=== PATIENT | male | born 1990 | race Caucasian/White ===

== ENCOUNTER 2024-01-28 10:11 | Emergency (ER) | payer OTHER, SELFPAY ==
[2024-01-28 10:21] VITALS: BP 131/92
--- NOTE | 2024-01-28 11:35 | ED.GENMED ---
History of Present Illness
<Maite Ward PA-C - Last Filed: 01/28/24 15:50>
General
Chief Complaint: Skin Problem
Source: patient
Exam Limitations: none
Time Seen by Provider: 01/28/24 11:34
Nursing documentation reviewed up to this point in time: agreed with
Travel History
Have you had any contact with someone who has COVID-19?: No
Do you have any symptoms of coronavirus? Fever > 100 degrees, chills, cough, shortness of breath, sore throat, loss of taste or smell, muscle aches, or headache?: No
History of Present Illness
History of Present Illness:
33-year-old male past medical history of opioid use disorder, tobacco use disorder, recurrent skin infection presenting to emergency department today with concerns of a bump on his left axilla. Patient reports that he noticed a bump a few days ago
and notes that there is some mild pain associated with it. He notes that he feels like the bump is 'draining into the inside of his chest'. Patient does shave over the area. Patient also expresses concern with a chronic wound on left hand.
Patient denies puritis. Patient states that he has been on antibiotics on and off for the same problem, and it has not significantly improved. He states that the wound has never been drained or opened up. Patient denies fevers or chills, new
rashes, sore throat, upper respiratory symptoms, chest pain, shortness of breath, history of diabetes. Patient does not have a family doctor and is never seen a primary care provider for this issue.
Past History
<Maite Ward PA-C - Last Filed: 01/28/24 15:50>
Past History
ED Past Medical History: Asthma, Other (ADD, nephrolithiasis, right bundle branch block. Heroin abuse) and Other (vent-dependent respiratory failure, anoxic brain injury)
ED Past Surgical History: Other (Nonspecific testicular surgery not cancerous )
Social History
Tobacco: Smoker
Alcohol: None
Drug: Marijuana, Narcotics (heroin-snorting) and IVDA
Personal: Single
Living: alone
Employment: Employed
Family History
Family History: Other (Is noncontributory)
Review of Systems
<Maite Ward PA-C - Last Filed: 01/28/24 15:50>
Review of Systems
All Other Systems: ROS reviewed and negative except as documented in HPI and ROS
Phy Exam
<Maite Ward PA-C - Last Filed: 01/28/24 15:50>
Physical Exam
Physical Exam:
Vitals: Vital signs are stable, patient is afebrile
General: Patient is well-appearing in no acute distress
Skin: There are some excoriations seen axillary erythema. There is a 2 cm, chronic raised ulcerated wound on a dorsal surface of the left hand with surrounding ring of erythema and a small excoriated area at the base.
Head: normocephalic, atraumatic
Cardiac: Regular rate, no murmur. No tenderness to palpation on the left lateral chest wall, no palpable masses, no actively draining wounds
Pulmonary: Normal respiratory effort
Abdomen: no abdominal tenderness to palpation, some scattered areas of excoriations
Musculoskeletal: small area of palpable lymphadenopathy on the left axilla, no palpable abscess or large mass.
Neuro: AAOx3.
Course
<Maite Ward PA-C - Last Filed: 01/28/24 15:50>
Vital Signs
Initial and Last Documented VS:
Initial Vital Signs
Temp Pulse Resp BP Pulse Ox
98.3 F 97 18 131/92 97
01/28/24 10:21 01/28/24 10:21 01/28/24 10:21 01/28/24 10:21 01/28/24 10:21
Last Documented Vital Signs
Temp Pulse Resp BP Pulse Ox
98.3 F 111 18 142/88 100
01/28/24 10:21 01/28/24 11:52 01/28/24 11:52 01/28/24 11:52 01/28/24 11:52
<Bradley Miller MD - Last Filed: 01/28/24 17:17>
Vital Signs
Initial and Last Documented VS:
Initial Vital Signs
Temp Pulse Resp BP Pulse Ox
98.3 F 97 18 131/92 97
01/28/24 10:21 01/28/24 10:21 01/28/24 10:21 01/28/24 10:21 01/28/24 10:21
Last Documented Vital Signs
Temp Pulse Resp BP Pulse Ox
98.3 F 111 18 142/88 100
01/28/24 10:21 01/28/24 11:52 01/28/24 11:52 01/28/24 11:52 01/28/24 11:52
<Maite Ward PA-C - Last Filed: 01/28/24 15:50>
MDM/Problems Addressed
Differential Diagnosis Includes:
ddx include MRSA cellulitis, folliculitis, reactive lymphadenopathy
MDM/Problems Addressed:
skin rash
skin bump
Chronic conditions affecting care: Asthma and Other (hx of opioid use disorder, tobacco use disorder )
<Maite Ward PA-C - Last Filed: 01/28/24 15:50>
*Pulse Oximetry
Patient hypoxic: no
*Critical Care Note
Total Time (30-74mins, 75-104mins- exclusive of procedures): Not Applicable
Data Reviewed
Review of Other/Old Records Reveals: Records (reviewed previous records from ER physician documentation 10/13/23) and Discharge Summary (reviewed discharge summary from 02/20/23)
Source: patient
<Maite Ward PA-C - Last Filed: 01/28/24 15:50>
Patient Management
Escalation/DeEscalation of care consider admission/obs:
33-year-old male with a past medical history of opioid use disorder, tobacco use disorder, asthma, returning infection presenting emergency department today with concerns of a mass under his left armpit as well as a chronic left hand wound. On
exam, patient has palpable lymphadenopathy under the left axilla with overlying excoriations, as well as a chronic he has an ulcerated wound on the dorsal surface of the left hand. Patient does not have any respiratory symptoms. Patient does shave
the left armpit and various parts of his body. I suspect his lymphadenopathy may be reactive from his left-sided skin lesions and rash. We will treat patient for cellulitis with Bactrim to cover possible MRSA infection. Patient has no PCP,
discussed that his chronic hand wound will require close, recurrent follow-up. Patient aware and will establish PCP. Patient does have insurance. Patient stable for discharge.
ED Attending Note
<Maite Ward PA-C - Last Filed: 01/28/24 15:50>
-
Portions of this chart may have been created with voice recognition software.� Occasional wrong word or��sound alike� substitutions may have occurred due to the inherent limitations of voice recognition software.
<Bradley Miller MD - Last Filed: 01/28/24 17:17>
ED Attending Note
Patient seen and examined by attending physician: Yes
ED Attending Note:
Patient presents to ED secondary to painful sensation noted on his left armpit over the past 2 days, along with nonhealing wound over his left hand over the past 1 week. Patient unsure of how he obtained small nonhealing laceration noted over
dorsal aspect of his left hand. Denies fever or chills. Denies direct trauma. Denies nausea or vomiting. Patient has had history of previous skin infection requiring treatment with antibiotics. Patient's medical history is significant for drug
abuse and smoking. Denies use of any IV drugs.
Physical Exam
General: no apparent distress, not acutely ill. afebrile.
Head: nc/at. eomi
Neck: supple. no meningeal signs.
Abdomen: normal bowel sounds. not tender.
Neuro: alert and oriented. no focal neurological deficits
Skin: an approx 3cm linear superficial laceration noted over dorsal aspect of left hand without separation/drainage. no surrounding erythema/warmth, nontender to palpation.
Psychiatric: well kept. interactive and cooperative
Extremities: no edema. no calf tenderness. mildly tender lymph noted over left axilla, without erythema/swelling/open wound.
Patient will be treated empirically with Bactrim, along with recommendation to follow-up with PCP for reevaluation.
Discharge Plan
Departure
Patient Disposition: Home (Routine Discharge)
Date of Disposition: 01/28/24
Time of Disposition: 11:57
Patient with high blood pressure during this ER visit?: Yes
Condition: Good
Discharge Problem:
Skin infection, Lymphadenopathy
Instructions: Cellulitis (Skin Infection), Adult (DC), BLOOD PRESSURE
Prescriptions:
New
sulfamethoxazole-trimethoprim [Bactrim DS] 800-160 mg tablet
1 tab PO BID 7 Days Qty: 14 0RF
No Action
Cepacol Sore Throat (luis-men) 15-2.6 mg Lozenge
1 nicholas PO Q4HPRN PRN (Reason: sore throat) Qty: 16 0RF
amoxicillin-pot clavulanate 875-125 mg Tablet
1 tab PO Q12 Qty: 5 0RF
Rx Instructions:
next dose 02/20/23 PM
ciprofloxacin HCl 0.3 % Drops
1 drp ophthalmic (eye) Q4H Qty: 10 0RF
Rx Instructions:
R eye x 1 week
loratadine 10 mg Tablet
10 mg PO DAILY Qty: 30 0RF
nystatin 100,000 unit/mL Suspension
5 ml PO QID Qty: 280 0RF
Rx Instructions:
2 week course
pantoprazole [Protonix] 40 mg tablet,delayed release (DR/EC)
40 mg PO DAILY Qty: 30 0RF
metoprolol succinate 25 mg Tablet Extended Release 24 Hr
12.5 mg PO BID Qty: 60 0RF
buprenorphine HCl 8 mg Tablet, Sublingual
16 mg sublingual DAILY Qty: 60 0RF
tamsulosin [Flomax] 0.4 mg capsule
0.4 mg PO [id number] Qty: 30 0RF
Patient Comments:
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
cephalexin 500 mg capsule
500 mg PO BID 7 Days Qty: 14 0RF
Referrals:
NONE,* [Family Provider] -
Activity Restrictions/Additional Instructions:
Please refrain from shaving until all of your infections are healed. Please call the number on the back of your insurance card to establish a primary care provider, is important that you have follow-up on this wound.
We have sent an antibiotic called Bactrim to your pharmacy. Please take 1 tablet every 12 hours for 7 days.
Please return to the emergency department should you experience fevers or chills, skin rash, drainage from your wound, or other concerning signs or symptoms.
Interventions
Interventions:
*Risk Screen - Suicide Last Done: 01/28/24 11:50
*General Assessment Last Done: 01/28/24 11:50
*Neglect/Abuse Screening Last Done: 01/28/24 11:50
ED- Fall Risk Assessment Last Done: 01/28/24 11:51
*ED COVID-19 Vaccine History Last Done: 01/28/24 10:21
*Nursing Disposition Last Done: 01/28/24 12:05
ED-Skin Assessment Last Done: 01/28/24 12:00
Discharge Date and Time
Discharge Date/Time: 01/28/24 12:05
--- NOTE | 2024-01-28 11:42 | EDRN ---
Jalen COSTA in room w/ pt .
[2024-01-28 11:52] VITALS: BP 142/88
--- NOTE | 2024-01-28 11:53 | EDRN ---
Dr. Miller in room w/ pt at this time.
[2024-01-28 12:05] VITALS: BMI 22.8
== END 2024-01-28 12:05 | disposition home or self-care (01) ==
LOC: EMR 10:11
PROVIDERS: EMERGENCY PHYSICIAN Emergency Medicine
DX: L08.9 Local infection of the skin and subcutaneous tissue, unspecified (principal); R59.1 Generalized enlarged lymph nodes; F17.200 Nicotine dependence, unspecified, uncomplicated; F11.90 Opioid use, unspecified, uncomplicated; J45.909 Unspecified asthma, uncomplicated; R03.0 Elevated blood-pressure reading, without diagnosis of hypertension; Z99.11 Dependence on respirator [ventilator] status
CPT/HCPCS: 99283

== ENCOUNTER 2024-01-29 14:56 | Emergency (ER) | payer SELFPAY ==
[2024-01-29 15:17] VITALS: BP 158/110
[2024-01-29 15:39] LABS: % Basophils 0.4 % (0-2); % Immature Granulocytes 0.5 % (0-0.5); % Lymphocytes 7.9 % (20.5-51.1); % Monocytes 5.9 % (1.7-9.3); % Neutrophils 84.3 % (42.2-75.2); Absolute Eosinophils 0.1 10^3/uL (0-0.7); Absolute Immature Granulocytes 0.1 10^3/uL (0-0.05); Absolute Lymphocytes 0.8 10^3/uL (1.2-3.4); Absolute Monocytes 0.6 10^3/uL (0.1-0.6); Absolute Neutrophils 8.6 10^3/uL (1.4-6.5); Hematocrit 44.2 % (39.0-52.0); Hemoglobin 15.4 g/dL (13.0-18.0); Mean Corp Hgb Conc. 34.8 g/dL (33.0-37.0); Mean Corpuscular Hgb 29.1 pg (27.0-31.0); Mean Corpuscular Volume 83.4 fL (80.0-94.0); Mean Platelet Volume 9.2 fL (7.4-10.4); Nucleated Red Blood Cells % 0 % (-); Platelet Count 206 10^3/uL (130-400); Red Cell Dist. Width 12.8 % (11.5-14.5); White Blood Cell Count 10.2 10^3/uL (4.8-10.8)
[2024-01-29 15:53] LABS: ALT (SGPT) 42 U/L (0-50); AST (SGOT) 47 U/L (17-59); Albumin 4.5 g/dl (3.5-5.0); Alkaline Phosphatase 115 U/L (38-126); Blood Urea Nitrogen 15 mg/dl (9-20); Calcium 9.6 mg/dl (8.4-10.2); Carbon Dioxide 29 mmol/L (22-30); Chloride 101 mmol/L (98-107); Glucose 81 mg/dl (70-99); Sodium 139 mmol/L (135-145); Total Bilirubin 0.6 mg/dl (0.2-1.3); Total Protein 7.1 g/dl (6.3-8.2); eGFR > 60.00
--- NOTE | 2024-01-29 18:31 | ED.GENMED ---
History of Present Illness
General
Chief Complaint: Oral/Mouth Problem
Source: patient
Time Seen by Provider: 01/29/24 18:06
Travel History
Have you had any contact with someone who has COVID-19?: No
Do you have any symptoms of coronavirus? Fever > 100 degrees, chills, cough, shortness of breath, sore throat, loss of taste or smell, muscle aches, or headache?: No
History of Present Illness
History of Present Illness:
This patient is a 33-year-old male who presents emergency department with concerns that he may have a left ear infection. He says that his left ear area started to develop [id number], associated with a funny feeling on the left side of the
back of his tongue and slight nausea. He denies drainage, tinnitus, fever, chills, vomiting, vertigo, visual changes, sore throat, change in voice, dyspnea, chest pain, or other complaints. Patient was here yesterday with reported swelling in the
left axillary area and was started on Bactrim which she is compliant with.
Past History
Past History
ED Past Medical History: Asthma and Other (ADD, nephrolithiasis, right bundle branch block. Heroin abuse)
ED Past Surgical History: Other (Nonspecific testicular surgery not cancerous )
Social History
Tobacco: Smoker
Alcohol: None
Drug: Marijuana, Narcotics (heroin-snorting) and IVDA
Personal: Single
Living: alone
Employment: Employed
Family History
Family History: Other (Is noncontributory)
Phy Exam
Physical Exam
Physical Exam:
GENERAL: Alert , in no apparent distress
EYE: pupils equal and reactive, no photophobia
NECK: Supple, no significant adenopathy, no swelling, trachea midline.
ENT: o/p clr, mmm, no submental swelling, no trismus, no drool, no stridor, voice clear. Right TM normal. Left TM visualized and is normal, there is dried blood noted at the external auditory canal without active bleeding, no canal swelling or
exudate noted.
CARDIAC: Regular rate and rhythm .
LUNGS: Clear breath sounds bilaterally, no acute respiratory distress, no wheezes/rales/rhonchi
ABDOMEN: Soft, without focal tenderness, no r/g, no cvat
NEUROLOGICAL: Alert and oriented, no focal neuro deficits
SKIN: Warm and dry, skin intact. There is a healing approximately 3 cm laceration of the left hand without secondary infection. In the left axilla area there is a slightly enlarged lymph node without associated redness, warmth, fluctuance
MUSCULOSKELETAL: Trace bilateral lower extremity edema, well perfused.
PSYCH: Normal and appropriate interaction.
Course
Orders/Labs/Results
Orders:
Orders
01/29/24 15:27
Complete Blood Count/With Diff Urgent
Comprehensive Metabolic Panel Urgent
Abnormal Lab Results
01/29/24
15:27
Abs Immat Gran (auto) 0.1 H 10^3/uL
(0-0.05)
Absolute Neuts (auto) 8.6 H 10^3/uL
(1.4-6.5)
Absolute Lymphs (auto) 0.8 L 10^3/uL
(1.2-3.4)
Neutrophils % 84.3 H %
(42.2-75.2)
Lymphocytes % 7.9 L %
(20.5-51.1)
01/29/24 15:27
01/29/24 15:27
Vital Signs
Initial and Last Documented VS:
Initial Vital Signs
Temp Pulse Resp BP Pulse Ox
98.0 F 100 16 158/110 98
01/29/24 15:17 01/29/24 15:17 01/29/24 15:17 01/29/24 15:17 01/29/24 15:17
Last Documented Vital Signs
Temp Pulse Resp BP Pulse Ox
98.0 F 100 16 158/110 98
01/29/24 15:17 01/29/24 15:17 01/29/24 15:17 01/29/24 15:17 01/29/24 15:17
*Critical Care Note
Total Time (30-74mins, 75-104mins- exclusive of procedures): Not Applicable
Update Note
Update Note:
Patient presents to the Emergency Department with ___left ear [id number]
Number and Complexity of Problems Addressed at the Encounter
� Chronic conditions affecting care:
� Acute Exacerbation and/or Progression of Chronic Illness:
� Differential Diagnosis includes: But not limited to paresthesias, otitis externa, otitis media, etc.
Amount and/or Complexity of Data to be Reviewed and Analyzed
� I performed an independent evaluation of and my interpretation is:
EKG:
CT:
Xrays:
Laboratory Studies:
Other:
� Review of other/old records reveals:
� Clinical information was obtained by an independent historian:
� Prescriptions/Medications Considered but not given:
� Further testing considered but not performed:
Risk of Complications and/or Morbidity or Mortality of Patient Management
� Social determinants of health affecting care:
� Discussion with other providers (PCP, Hospitalists, Consultants, etc):
� Escalation of care including admission/observation vs risk of discharge considered: 6:34 PM patient admits to picking at the external portion of the left ear which I suspect is the reason for the dried blood noted, no active
bleeding, infection, otitis externa, otitis media, mastoiditis noted on physical exam. No acute infection noted otherwise. Discussed with patient importance of follow-up and reasons return to the ER.
ED Attending Note
-
Portions of this chart may have been created with voice recognition software.� Occasional wrong word or��sound alike� substitutions may have occurred due to the inherent limitations of voice recognition software.
Discharge Plan
Departure
Patient Disposition: Home (Routine Discharge)
Date of Disposition: 01/29/24
Time of Disposition: 18:35
Patient with high blood pressure during this ER visit?: Yes
Condition: Good
Discharge Problem:
Acute ear pain
Instructions: BLOOD PRESSURE, General
Prescriptions:
No Action
Cepacol Sore Throat (luis-men) 15-2.6 mg Lozenge
1 nicholas PO Q4HPRN PRN (Reason: sore throat) Qty: 16 0RF
amoxicillin-pot clavulanate 875-125 mg Tablet
1 tab PO Q12 Qty: 5 0RF
Rx Instructions:
next dose 02/20/23 PM
ciprofloxacin HCl 0.3 % Drops
1 drp ophthalmic (eye) Q4H Qty: 10 0RF
Rx Instructions:
R eye x 1 week
loratadine 10 mg Tablet
10 mg PO DAILY Qty: 30 0RF
nystatin 100,000 unit/mL Suspension
5 ml PO QID Qty: 280 0RF
Rx Instructions:
2 week course
pantoprazole [Protonix] 40 mg tablet,delayed release (DR/EC)
40 mg PO DAILY Qty: 30 0RF
metoprolol succinate 25 mg Tablet Extended Release 24 Hr
12.5 mg PO BID Qty: 60 0RF
buprenorphine HCl 8 mg Tablet, Sublingual
16 mg sublingual DAILY Qty: 60 0RF
tamsulosin [Flomax] 0.4 mg capsule
0.4 mg PO [id number] Qty: 30 0RF
Patient Comments:
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
cephalexin 500 mg capsule
500 mg PO BID 7 Days Qty: 14 0RF
sulfamethoxazole-trimethoprim [Bactrim DS] 800-160 mg tablet
1 tab PO BID 7 Days Qty: 14 0RF
Referrals:
Luis Mcrae MD [Active] - Next open appointment
Activity Restrictions/Additional Instructions:
IF YOU DEVELOP BLEEDING, DRAINAGE, FEVER, DIZZINESS, SWELLING OR REDNESS OF YOUR EAR OR NECK AREA, TROUBLE SWALLOWING, TROUBLE OPENING YOUR MOUTH, DROOLING, CHEST PAIN, SHORTNESS OF BREATH, OR OTHER WORRISOME SIGNS, PLEASE RETURN TO THE ER
IMMEDIATELY.
Interventions
Interventions:
*ED COVID-19 Vaccine History Last Done: 01/29/24 15:17
[2024-01-29 18:40] VITALS: BP 152/89
== END 2024-01-29 18:50 | disposition home or self-care (01) ==
LOC: EMR 14:56
PROVIDERS: EMERGENCY PHYSICIAN Emergency Medicine
DX: H92.02 Otalgia, left ear (principal); F17.200 Nicotine dependence, unspecified, uncomplicated; R03.0 Elevated blood-pressure reading, without diagnosis of hypertension
CPT/HCPCS: 99283; 80053; 85025

== ENCOUNTER 2024-07-23 17:40 | Inpatient (IN) | payer OTHER, SELFPAY ==
[2024-07-23] VITALS (28 sets, daily range): BP systolic 69–172; BP diastolic 46–149; BMI 22.8; BMI 22.0
[2024-07-23 14:56] LABS: Glucose - Point of Care 95 mg/dl (70-99)
[2024-07-23] MEDS: SUBLIMAZE 100 MCG IV ×2 (15:06→16:44)
[2024-07-23] MEDS: SUBLIMAZE 100 IV ×2 (15:07→20:21)
[2024-07-23] MEDS: NSS 1000 IV ×2 (15:08→19:25)
[2024-07-23] MEDS: LEVOPHED 250 IV ×2 (15:09→21:36)
--- NOTE | 2024-07-23 15:30 | ED.GENMED ---
History of Present Illness
General
Chief Complaint: CODE
Source: ambulance crew
Exam Limitations: clinical condition and altered mental status
Time Seen by Provider: 07/23/24 15:02
Nursing documentation reviewed up to this point in time: agreed with
History of Present Illness
History of Present Illness:
Patient with history of chronic opioid use, presents to ED for evaluation after he was found unresponsive laying on the couch by his father. Per paramedics, patient was last known awake at 9 AM this morning, and 911 was dispatched 2:07 PM. When
police first arrived at scene, patient was found to be apneic and pulseless. Patient was given 4 mg of Narcan and CPR was started. When paramedics arrived at scene, patient was found to be in same clinical state. Patient was given additional 4 mg
of Narcan and shortly afterwards was found to be in ventricular fibrillation rhythm. Patient was given 1 shock with adventist of sinus rhythm and pulse. Patient was started IV fluid and intubated seen prior to arrival. No further information
available at this time.
Past History
Past History
ED Past Medical History: Asthma and Other (ADD, nephrolithiasis, right bundle branch block. Heroin abuse)
ED Past Surgical History: Other (Nonspecific testicular surgery not cancerous )
Social History
Tobacco: Smoker
Alcohol: None
Drug: Marijuana, Narcotics (heroin-snorting) and IVDA
Personal: Single
Living: alone
Employment: Employed
Family History
Family History: Other (Is noncontributory)
Review of Systems
Review of Systems
Allergies reviewed?: Yes
Unable to obtain full review of systems at this time due to: intubated
All Other Systems: Not applicable
Phy Exam
Physical Exam
Physical Exam:
Physical Exam
General: somnolent, unresponsive to verbal/physical stimuli. afebrile
Head: nc/at. pupils dilated and unreactive
Neck: no jvd.
Heart: s1/s2 regular rate and rhythm, no murmur. equal radial pulses.
Lungs: no acute respiratory distress. equal bilaterally while being bagged
Abdomen: normal bowel sounds. no distention
Neuro: unresponsive.
Skin: no rash
Extremities: no edema.
Course
Orders/Labs/Results
Orders:
Orders
07/23/24 14:55
CR Chest Portable - 1 View Urgent
Comment:
Reason For Exam: code
Reason Study Needs to be Portable: Unable to Transport
07/23/24 14:58
FentaNYL 1,000 MCG/100 ML [Sublimaze] 1,000 mcg in 100 ml .ROUTE .STK-MED
Fentanyl Citrate/Pf [Sublimaze] 100 mcg .ROUTE .STK-MED ONE
07/23/24 Dinner
NPO
Allow oral meds: Yes
Allow clear liquids: No
07/23/24 15:02
0.9% Sodium Chloride 1000 ml [Nss] 1,000 ml IV BOLUS
FentaNYL 1,000 MCG/100 ML [Sublimaze] 1,000 mcg in 100 ml IV NOW
Indication:: Light Sedation
Begin Infusion:: Now
Goal:: pain score </= 1, CPOT 0-2
Maximum dose in mcg/hr:: 300
Initial Dose in mcg/hr:: 25
Titration Instructions:: Titrate every 30 minutes if patient exhibits signs of pain or discomfort
Titration Instructions:: (pain score >/= 2, CPOT >/= 3).
Titration Instructions:: Administer bolus dose and increase infusion by 25 mcg/hr.
Taper Instructions:: If pain score at goal for 4 consecutive hours (pain score </= 1, CPOT 0-2)
Taper Instructions:: decrease infusion by 50 mcg/hr every 2 hours.
Taper Instructions:: When dose </= 50 mcg/hr may turn infusion off and consider PRN
Taper Instructions:: intermittent bolus doses only.
Over-sedation Instructions:: If CPOT 0-2 (goal) and RASS -3 to -5 (below goal) decrease sedative by 50%
Over-sedation Instructions:: first. If pain score remains at goal and RASS remains below goal in 1 hour,
Over-sedation Instructions:: decrease opioid infusion by 50%.
Notify provider:: immediately if pt exhibits: chest wall rigidity, hemodynamic instability,
Notify provider:: agitation/pain despite maximum dosing, pain when RASS below goal.
Additional Instructions:: Patient MUST be mechanically ventilated.
Fentanyl Citrate/Pf [Sublimaze] 100 mcg IV NOW STA
Fentanyl Citrate/Pf [Sublimaze] 50 mcg IV [id number] PRN
NORepinephrine 4 MG/250 ML [Levophed] 4 mg in 250 ml .ROUTE .STK-MED
07/23/24 15:05
CT Head W/o Iv Contrast Urgent
Comment:
Reason For Exam: mental status change
07/23/24 15:15
NORepinephrine 4 MG/250 ML [Levophed] 4 mg in 250 ml IV PER PROTOCOL
Initial dose in mcg/min, then titrate:: 5
Titrate to keep:: SBP > 90 mmHg
Titrate by mcg/min:: 1-2 mcg/min
Frequency of titrations (minutes):: 5
Maximum dose in ICU in mcg/min:: 30
Maximum dose in IMU in mcg/min:: 8
Maximum dose in IVU in mcg/min:: 4
Begin to taper infusion when:: Remained at goal for 4hrs
Taper by mcg/min:: 1-2 mcg/min
Frequency of taper (minutes) if patient maintains goal:: 30
Taper to off?: Yes
If infusion off & no longer maintaining goal:: Contact Provider
07/23/24 15:21
[place] Placement- Treatment ONCE
Reason for insertion: I&O's Critical Care
07/23/24 15:34
Basic Metabolic Panel Urgent
Complete Blood Count/With Diff Urgent
Lactic Acid Q4H
Comment: CANCEL 2nd LACTIC ACID IF 1st LACTIC ACID IS LESS THAN 2
Triglycerides Routine
Comment: baseline levels with propofol infusion
07/23/24 15:40
Lorazepam [Ativan] 2 mg IV NOW STA
07/23/24 15:41
Lorazepam [Ativan] 2 mg .ROUTE .STK-MED ONE
07/23/24 15:42
Propofol 1,000,000 Mcg/100 ml [Diprivan] 1,000,000 mcg in 100 ml IV NOW
Indication:: Light Sedation
Begin Infusion:: Now
Goal:: RASS 0 to -2
Maximum dose in mcg/kg/min:: 50
Initial dose based on RASS:: Yes
If RASS is:: +1 or pt hemodynamically unstable (SBP < 90mmHg), initiate at 10 mcg/kg/min
If RASS is:: +2, initiate at 20 mcg/kg/min
If RASS is:: greater than or equal to +3, initiate at 30 mcg/kg/min
Titration Instructions:: Titrate by 5-10 mcg/kg/min every 5 minutes until RASS 0 to -2 achieved.
Taper Instructions:: If RASS is at or below goal for 4 consecutive hours decrease infusion by
Taper Instructions:: 5-10 mcg/kg/min every 2 hours to off.
Over-sedation Instructions:: If CPOT 0-2 (at goal) AND RASS -3 to -5 (below goal) decrease sedative by
Over-sedation Instructions:: 50% first. If pain score remains at goal and RASS remains below goal in
Over-sedation Instructions:: 1 hour, decrease opioid infusion by 50%.
Notify provider:: immediately if patient exhibits signs/symptoms of propofol-related
Notify provider:: infusion syndrome.
Additional Instructions:: Patient MUST be mechanically ventilated and MUST receive analgesia.
07/23/24 15:48
Arterial Blood Gas Urgent
%Oxygen/Room Air: 90
07/23/24 15:49
Drug Screen, Urine [Urine Drug Abuse Screen] Urgent
Date Specimen was Collected: 07/23/24
Time Specimen was Collected: 15:48
Fentanyl, Urine Urgent
07/23/24 16:08
Fentanyl Citrate/Pf [Sublimaze] 100 mcg .ROUTE .STK-MED ONE
07/23/24 16:32
Fentanyl Citrate/Pf [Sublimaze] 100 mcg IV [id number] PRN
07/23/24 17:10
DX Deep Vein Thrombosis Video Routine
07/23/24 17:20
Admit/Transfer Patient As Directed
Co-Sign Provider:
Level of Care: Inpatient admission
Assign to:: ICU
Physician / Group: james
Diagnosis: fentanyl overdose
Reason for Hospitalization: fentanyl overdose
Expected length of stay greater than two midnights?: Yes
ELOS- Estimated Length of Stay in days: 2
I certify the patient meets the requirements for IP care: Yes
Code Status As Directed
Resuscitation Status: Full Code
PRN Pain Medication Management As Directed
May give lesser potent ordered pain med per pt: Yes
preference::
Protocol:: Medication orders for pain may be administered in a
manner that supports deferring to patient preference
when the pt is:
- Requesting an ordered lesser potent pain medication.
Least to most potent pain medications are defined
as: acetaminophen < NSAID < tramadol < opioids
(morphine, oxycodone, hydromorphone).
- Requesting a lesser dose of the same medication IF
ORDERED.
- Requesting a less intrusive route of administration
if both routes are prescribed by the provider (PO <
IV).
07/23/24 18:00
Enoxaparin Sodium [Lovenox] 40 mg SC QPM
07/23/24 18:06
0.9% Sodium Chloride 1000 ml [Nss] 1,000 ml IV 100 mls/hr
07/23/24 18:06
Activity As Directed
Activity Level: As Tolerated
Vital Signs As Directed
Frequency: Per unit guidelines
07/23/24 20:14
Arterial Blood Gas Routine
%Oxygen/Room Air: 100
Basic Metabolic Panel Routine
Lactic Acid Q4H
Comment: CANCEL 2nd LACTIC ACID IF 1st LACTIC ACID IS LESS THAN 2
Magnesium Routine
07/24/24 03:42
ABG [Arterial Blood Gas] IN AM
%Oxygen/Room Air: 100
Complete Blood Count/With Diff IN AM
Comprehensive Metabolic Panel IN AM
07/24/24 08:00
Pantoprazole [Protonix IV] 40 mg IV DAILY
Abnormal Lab Results
07/23/24 07/23/24 07/23/24
15:34 15:48 15:49
Abs Immat Gran (auto) 0.8 H 10^3/uL
(0-0.05)
Immature Gran % 8.6 H %
(0-0.5)
pH 7.18 L*
(7.35-7.45)
pO2 301 H mmHg
(83-108)
HCO3 14.9 L* mmol/L
(21-28)
ABG O2 Sat (Measured) 100.0 H %
(94-98)
Carbon Dioxide 14 L* mmol/L
(22-30)
Creatinine 1.4 H mg/dL
(0.7-1.3)
Lactic Acid 8.2 H* mmol/L
(0.7-2.0)
Urine Fentanyl Screen Positive H
(Negative)
Ur Amphetamines Screen Positive H
(Negative)
U Methamphetamines Scrn Positive H
(Negative)
Urine Cocaine Screen Positive H
(Negative)
07/23/24 15:34
07/23/24 15:34
Vital Signs
Initial and Last Documented VS:
Initial Vital Signs
Pulse Resp BP Pulse Ox
98 17 69/46 98
07/23/24 14:56 07/23/24 14:56 07/23/24 14:56 07/23/24 14:56
Last Documented Vital Signs
Temp Pulse Resp BP Pulse Ox
101 F H 91 18 98/68 100
07/24/24 03:47 07/24/24 06:30 07/24/24 06:30 07/24/24 04:00 07/24/24 07:36
MDM/Problems Addressed
MDM/Problems Addressed:
Patient evaluated medially upon arrival. Equal breath sounds noted while being bagged. ET tube evaluated with chest x-ray, ETT tube adjusted - pushed down 1cm towards jose eduardo.
Patient found to be severely hypotensive, for which IV fluid along with Levophed infusion started, as well as fentanyl infusion for sedation.
CT head pending.
Patient will be admitted to ICU, with suspected anoxic brain injury.
Discussed with father at bedside.
Propofol gtt added due to increased RR and agitation noted during observation, as patient noted to be breathing above the vent setting.
Critical care statement: A total of 60 minutes of critical care time was provided for this patient. This includes management of unstable vital signs, evaluation of the patient at bedside, reviewing the patient's pertinent medical records, review of
old EKGs and review of pertinent medical records. This time with separate from time utilized to perform the aforementioned documented procedures
*Critical Care Note
Total Time (30-74mins, 75-104mins- exclusive of procedures): 60 min
ED Attending Note
-
Portions of this chart may have been created with voice recognition software.� Occasional wrong word or��sound alike� substitutions may have occurred due to the inherent limitations of voice recognition software.
Discharge Plan
Departure
Patient Disposition: Admit
Date of Disposition: 07/23/24
Time of Disposition: 15:36
Admit to: ICU
Presentation/result/management discussed w/ accepting MD/DO: Hospitalist
Discharge Problem:
Respiratory failure
Interventions
Interventions:
*Risk Screen - Suicide Last Done: 07/23/24 14:56
*General Assessment Last Done: 07/23/24 14:56
*Neglect/Abuse Screening Last Done: 07/23/24 14:56
ED- Fall Risk Assessment Last Done: 07/23/24 18:18
*ED COVID-19 Vaccine History Last Done: 07/23/24 18:19
*Nursing Disposition Last Done: 07/23/24 18:18
ED- Cardiac Assessment Last Done: 07/23/24 15:10
ED- Pulmonary Assessment Last Done: 07/23/24 15:10
Discharge Date and Time
Discharge Date/Time: 07/23/24 18:20
[2024-07-23] MEDS: ATIVAN 2 MG IV (15:43)
[2024-07-23 15:51] LABS: Hematocrit 44.2 % (39.0-52.0); Hemoglobin 14.8 g/dL (13.0-18.0); Mean Corp Hgb Conc. 33.5 g/dL (33.0-37.0); Mean Corpuscular Hgb 30.5 pg (27.0-31.0); Mean Corpuscular Volume 91.1 fL (80.0-94.0); Platelet Count 245 10^3/uL (130-400); Red Blood Cell Count 4.85 10^6/uL (4.70-6.10); Red Cell Dist. Width 11.9 % (11.5-14.5); White Blood Cell Count 9.4 10^3/uL (4.8-10.8)
[2024-07-23 15:54] LABS: B.E. -12.9 mmol/L; PCO2 40 mmHg (35-48); PO2 301 mmHg (83-108)
[2024-07-23] MEDS: DIPRIVAN 100 IV ×2 (15:55→19:20)
[2024-07-23 15:57] LABS: HCO3 14.9 mmol/L (21-28); pH 7.18 (7.35-7.45)
[2024-07-23 16:06] LABS: Blood Urea Nitrogen 20 mg/dl (9-20); Calcium 8.7 mg/dl (8.4-10.2); Carbon Dioxide 14 mmol/L (22-30); Chloride 105 mmol/L (98-107); Estimated Creatinine Clearance 77 ml/min; Sodium 142 mmol/L (135-145); Triglycerides 45 mg/dl (10-149); eGFR > 60.00
[2024-07-23 16:07] LABS: % Basophils 1.3 % (0-2); % Eosinophils 1.5 % (0-6); % Immature Granulocytes 8.6 % (0-0.5); % Lymphocytes 35.2 % (20.5-51.1); % Monocytes 3.7 % (1.7-9.3); % Neutrophils 49.7 % (42.2-75.2); Absolute Basophils 0.1 10^3/uL (0-0.2); Absolute Eosinophils 0.1 10^3/uL (0-0.7); Absolute Immature Granulocytes 0.8 10^3/uL (0-0.05); Absolute Lymphocytes 3.3 10^3/uL (1.2-3.4); Absolute Monocytes 0.4 10^3/uL (0.1-0.6); Absolute Neutrophils 4.7 10^3/uL (1.4-6.5); Glucose 85 mg/dl (70-99); Nucleated Red Blood Cells % 0 % (-)
[2024-07-23 16:11] LABS: Lactic Acid 8.2 mmol/L (0.7-2.0)
[2024-07-23 16:30] LABS: Amphetamines Positive (Negative); Barbiturates Negative (Negative); Benzodiazepines Negative (Negative); Buprenorphine Negative (Negative); Cocaine Positive (Negative); Marijuana Negative (Negative); Methadone Negative (Negative); Methamphetamines Positive (Negative); Opiates Negative (Negative); Phencyclidine Negative (Negative); Tricyclic Antidepressants Negative (Negative)
--- NOTE | 2024-07-23 16:34 | HPS.HSE ---
Family Physician
-
Family Physician: NO INTERVIEW UNKNOWN
Chief Complaint
-
overdose
History of Present Illness
33-year-old male past medical history of cardiac arrest from drug overdose, heroin use, cardiomyopathy, vent dependent respiratory failure, aspiration pneumonia, nephrolithiasis, leukoplakia of tongue, depression, presenting for altered mental
status. He was found unresponsive laying on the couch by his father. Per paramedics he was last awake at 9 AM this morning and EMS was dispatched at 2:07 PM and police found him apneic and pulseless. Patient was given 4 mg of Narcan and CPR was
started. Paramedics arrived and gave additional 4 mg Narcan and was found to be in ventricular fibrillation. He was shocked once with baptism of sinus rhythm and pulse. He was intubated prior to arrival.
Patient has not used drugs in 2 years. Father denies any suicidal intent recently. Patient does use medical marijuana. He does not drink alcohol and father is not aware of any other drug use.
Medical History
Past Medical History
Past Medical History: Reports Other (cardiac arrest from drug overdose, heroin use, cardiomyopathy, vent dependent respiratory failure, aspiration pneumonia, nephrolithiasis, leukoplakia of tongue, depression)
Past Surgical History: Reports None
Social History
Tobacco: Non-smoker
Alcohol: None
Drug: Marijuana and Narcotics
Family History
Family History: Not pertinent
Allergies / Home Medications
Allergies reflects when Allergies were last updated in [facility].
Home Medications with original date entered in [facility]
Allergy/Medication List:
Allergies
Allergy/AdvReac Type Severity Reaction Status Date / Time
cat dander Allergy Unknown Verified 07/23/24 14:53
house dust Allergy Unknown Verified 07/23/24 14:53
pollen extracts Allergy Unknown Verified 07/23/24 14:53
shrimp Allergy SWELLING/IT Verified 07/23/24 14:53
PETEY
Home Medications
terbinafine HCl 1 % topical cream 1 applic topical BID Skin Issues 07/23/24
Review of Systems
-
Unable to obtain full review of systems at this time due to: Patient Intubation
History Source: Family
A 12 point ROS was completed and negative except as noted: No
Physical Exam
Vital Signs
Vital Signs
Pulse Resp BP Pulse Ox
116 29 172/149 97
07/23/24 16:15 07/23/24 16:15 07/23/24 16:00 07/23/24 16:15
Physical Exam
General: Well Developed, Well Nourished and No Apparent Distress
HEENT: NormoCephalic, Moist mucous membranes and Atraumatic
Respiratory: Clear
Cardiac: S1/S2 and Regular Rhythm; No Murmur or Rub
GI: Soft, Non Tender, Non Distended and Normal Bowel Sounds; No Organomegaly
Rectal: Deferred by Provider
Musculoskeletal: No Clubbing, No Cyanosis and No Edema
Skin: No Rash
Neuro: Nonfocal/grossly intact
Laboratory Results
-
07/23/24 15:34
07/23/24 15:34
Laboratory Results
pH 7.18 (7.35-7.45) L* 07/23/24 15:48
pCO2 40 mmHg (35-48) 07/23/24 15:48
pO2 301 mmHg (83-108) H 07/23/24 15:48
HCO3 14.9 mmol/L (21-28) L* 07/23/24 15:48
Lactic Acid 8.2 mmol/L (0.7-2.0) H* 07/23/24 15:34
Total Bilirubin Cancelled 07/23/24 15:34
AST Cancelled 07/23/24 15:34
ALT Cancelled 07/23/24 15:34
Alkaline Phosphatase Cancelled 07/23/24 15:34
Data Reviewed
-
Lab Data: Labs Reviewed by me
Old Records: Reviewed
Impression/Plan
-
IMPRESSION:
PLAN:
# Vfib Cardiac arrest secondary to fentanyl/heroin overdose
-Postintubation ABG shows pH of 7.18 secondary to metabolic acidosis
-Chest x-ray shows parenchymal process in the right lower lung atelectasis, pneumonia not completely excluded
-CT head shows no acute abnormality
-Fentanyl drip
-Propofol drip
-Levophed weaned off
-UDS pending
#Metabolic acidosis secondary to cardiac arrest
#Acute kidney injury
-Patient received 2 L of IV fluids
-Lactate of 8, trend lactic
-Continue IV fluids
History of fentanyl, benzodiazepine, cocaine use
-As per prior UDS
History of cardiomyopathy
-LV ejection fraction is 55-60%
Nephrolithiasis
History of leukoplakia of tongue
Depression
Full code
NPO
DVT prophylaxis-heparin
--- NOTE | 2024-07-23 16:54 | CON.INTV ---
Consultation
Consultation Request
Date/Time Consultation Requested: 07/23/2024
Date/Time Consultation Performed: 07/23/2024
Requesting Provider: Dr. Guerrero
Performing Provider: Dr. Jered Hawley
Reason for Consultation: Respiratory arrest/hypercapnic respiratory failure requiring intubation
Medical History
-
History of Present Illness:
33-year-old man with longstanding history of opiate abuse, prior history of drug overdose requiring CPR and intubations in the past. Last in 2022. History of depression, leukoplakia of the tongue, nephrolithiasis presented with mental status
change. He was found unresponsive in the couch by his father. Last time seen awake was 9 AM. Unclear how long patient was down. At 2 PM police was dispatched. 4 mg of Narcan was given and CPR started. Paramedics arrived and additional 4 mg of
Narcan were given. Found on ventricular fibrillation, shocked once with restart of spontaneous circulation. Intubated on the field prior to arrival.
After intubation, tachypneic, unresponsive. Overbreathing the ventilator. Hypotensive after starting sedation, Levophed was started.
-
Personally discussed with father and patient apparently has not used drugs for 2 years. Apparently there is no history of alcohol use. He smokes marijuana.
Past Medical History
Past Medical History: Other (See assessment and plan findings)
Social History
Tobacco: Non-smoker
Alcohol: None
Drug: Marijuana
Personal: Single
Living: With Family (Father)
Employment: Not Employed
Family History
Family History: Unable to Obtain
Allergies / Home Medications
Allergies
Allergy/AdvReac Type Severity Reaction Status Date / Time
cat dander Allergy Unknown Verified 07/23/24 14:53
house dust Allergy Unknown Verified 07/23/24 14:53
pollen extracts Allergy Unknown Verified 07/23/24 14:53
shrimp Allergy SWELLING/IT Verified 07/23/24 14:53
PETEY
Home Medications
�Medication �Instructions �Recorded �Confirmed �Last Taken �Type
terbinafine HCl 1 % topical cream 1 applic topical BID Skin Issues 07/23/24 07/23/24 Unknown History
Review of Systems
-
Unable to Obtain full review of systems at this time due to: Patient Intubation
Vitals / Labs / Diagnostic Testing
Vital Signs
Temp Pulse Resp BP Pulse Ox
94.1 F L 104 26 104/74 94
07/23/24 16:39 07/23/24 16:45 07/23/24 16:45 07/23/24 16:30 07/23/24 16:45
Lab Data
07/23/24 15:34
07/23/24 15:34
Laboratory Results
07/23/24
15:48
pH 7.18 L*
pCO2 40
pO2 301 H
HCO3 14.9 L*
O2 Delivery Level
Diagnostic Testing:
Physical Exam
-
HEENT: Normocephalic and Other (ET tube without secretions.)
Cardiovascular: S1/S2
Respiratory: Clear and Non-Labored Respirations
GI: Soft and Non Distended
Neurology: Other (Sedated on mechanical ventilation. Overbreathing the ventilator. Pupils are small and sluggish to light.)
Skin: Warm
General: Respiratory Distress (On mechanical ventilation.)
Assessment
-
33-year-old man with history of drug abuse. Found unresponsive by his father. Last time seen awake was 9 AM. Police arrived and provided Narcan. Subsequently EMS provided more Narcan and patient apparently was on ventricular fibrillation x 1
shock provided with regain of spontaneous circulation. Intubated on the field. ICU consulted 07/23/2024 for further care.
Hypercapnic respiratory failure due to drug overdose-last time seen was 9 AM. Found at 2 PM.
Subsequent ventricular fibrillation arrest-status post defibrillation x 1 with rapid regain of circulation.
Metabolic/respiratory acidosis: pH 7.18/40/301/14
Increased lactic acid postcardiac arrest.
Rule out anoxic brain injury: So far CT negative for bleeding or signs of ischemia or edema.
Possible aspiration event: Right lower lobe atelectasis versus pneumonia on chest x-ray. Reviewed.
Conditions present prior admission:
History of asthma
History of cardiomyopathy, EF 35%, resolved 2020-recovered LVEF in 2022 back to normal.
History of nephrolithiasis
History of Cardiac arrest, asystole, December 2020.
EPI x 5, CPR x 35 min (per EMS)
History of cardiac/respiratory arrest 02/17/2023.
History of Acute renal failure, creatinine 2.8
History of incarceration for 4-1/2 years
Former tobacco history
Assessment and plan:
Critically ill: Intubated on mechanical ventilation. Briefly recurrent Levophed.
Overbreathing the ventilator.
-
Continue with volume-cycled ventilation
Peak pressure 24. Plateau 20.
Patient overbreathing the ventilator. Continue mechanical ventilation without change.
Repeat ABG once he arrives to the ICU, mechanical ventilation settings will be made accordingly.
Wean FiO2 as able
-
Trend lactic acid
Follow renal function
Hemodynamic support
-
I agree with sedation as the patient is overbreathing the ventilator.
Not bronchospastic on exam.
No moving extremities
Pupils are equal, pinpoint but reactive slowly.
-
Follow closely for development of lung injury process
Okay to hold antibiotics for now.
Maintain sedation propofol/fentanyl until tomorrow.
Depending on clinical situation may try spontaneous breathing trial.
Depending on neurological status may repeat CT of the head tomorrow.
Will target normothermia.
Avoid hypotension.
Observe: Low threshold to start antibiotics if fevers develop.
Respiratory-hypercapnic respiratory failure due to drug overdose/cardiac arrest, PEA
Toxicology: Positive for amphetamines/cocaine fentanyl and fentanyl assay pending.
Status post CPR: Regained spontaneous circulation after one shock. No further arrest. Has remained relatively hemodynamically stable without arrhythmias.
Likely primarily due to respiratory arrest
No indication for TTM at this time
Will repeat BMP 9pm and ABG later.
If metabolic acidosis worsens then bicarbonate drip will be recommended.
For now continue IV fluids.
Pressors if mean arterial blood pressure under 65 mmHg.
May require nebulized therapy, follow closely
DVT prophylaxis: Lovenox for DVT prophylaxis.
GI prophylaxis: Protonix
I personally discussed with father in detail and explained above. He states that he is familiar with this clinical scenario. Will continue hemodynamic support. Prognosis is guarded.
Critical care statement: A total of 45 minutes of critical care time was provided for this patient today. This includes management of unstable vital signs, evaluation of the patient at bedside, reviewing the patient's pertinent medical records
including ventilator settings, arterial blood gases, radiographs, microbiology, laboratory evaluations and discussion with primary team, critical care nursing, and respiratory therapy.

Reviewed images.
-
-
Echocardiogram 02/17/2023:
Reviewed, showed normal ejection fraction. Normal left atrial size. No mitral rotation. No aortic regurgitation.
Chest x-ray: Reviewed relatively clear. Possible right lower lobe abnormality.
[2024-07-23 17:07] LABS: Fentanyl, Urine Positive (Negative)
[2024-07-23] MEDS: LOVENOX 40 MG SC (18:40)
--- NOTE | 2024-07-23 20:17 | W.PN.UPDATE ---
Update Note
Progress Note Update
Operation/Procedure: left radial arterial line placement
Consent for operation or procedure: Emergent need due to patient condition - need for invasive monitoring per protocol
Indications: Hemodynamic monitoring
After properly positioning the patient's wrist in the standard fashion, the site was prepped and draped in a sterile fashion. The radial artery was entered, noting bright red, pulsatile flow. A guidewire was easily inserted, the needle removed,
and the catheter was then placed using the Seldinger technique. The guidewire was removed, with good flow present. The catheter was then connected to the transducer with a good waveform noted. The catheter was secured with an occlusive dressing
was placed after properly cleaning and prepping the site.
Complications: The patient tolerated the procedure well and no complications were noted.
Estimated Blood Loss: minimal
Plan: Arterial line to remain in place for hemodynamic monitoring.
[2024-07-23 20:21] LABS: B.E. -4.9 mmol/L; HCO3 19.9 mmol/L (21-28); O2 Saturation % 99.3 % (94-98); PCO2 36 mmHg (35-48); PO2 110 mmHg (83-108); pH 7.35 (7.35-7.45)
[2024-07-23 20:36] LABS: Lactic Acid 1.6 mmol/L (0.7-2.0); Phosphorus 2.8 mg/dl (2.5-4.5); Triglycerides 31 mg/dl (10-149)
[2024-07-23 20:40] LABS: Blood Urea Nitrogen 26 mg/dl (9-20); Calcium 8.4 mg/dl (8.4-10.2); Carbon Dioxide 19 mmol/L (22-30); Chloride 110 mmol/L (98-107); Estimated Creatinine Clearance > 125 ml/min; Glucose 105 mg/dl (70-99); Magnesium 1.8 mg/dl (1.6-2.3); Sodium 142 mmol/L (135-145); eGFR > 60.00
[2024-07-23] MEDS: KEPPRA 1000 MG IV (20:45)
--- NOTE | 2024-07-23 21:00 | PTCARENOTE ---
rec'd patient at 1845. b/l pupils 1mm, nonreactive, slight twitching noted throughout entire body. does not w/d to pain. absent gag/cough. absent corneals. ST on monitor. BP stable. + b/l DP pulses. no edema, afebrile. #7.5 ETT @ .
20/450/5/60%. lungs CTA. oral care provided. OGT clamped. read in place w/ core temp monitoring. EKG done. labs sent. father at bedside, updated on plan of care. twitching movements increasing, ICU FACILITY MANAGER HISTOLOGY made aware, neurology consult placed, jessicara
initiated. EEG ordered. prop/fent gtts continue. L radial arterial line placed at bedside by ICU FACILITY MANAGER HISTOLOGY. care ongoing.
[2024-07-23 21:15] LABS: INR 1.25; PT 15.6 Sec (11.4-14.6)
--- NOTE | 2024-07-23 22:32 | PTCARENOTE ---
[facility] contacted and given information regarding current status of patient at this time.
[2024-07-24] VITALS (8 sets, daily range): BP systolic 96–144; BP diastolic 68–98; BMI 22.0
--- NOTE | 2024-07-24 00:02 | PTCARENOTE ---
pt reassessed. neuro status remains unchanged, prop/fent gtts continue. remains SR on monitor. levo gtt initiated to maintain MAP >65. FiO2 decreased to 40%. read care, oral care, CHG bath provided. care ongoing.
[2024-07-24] MEDS: SUBLIMAZE 100 IV ×3 (00:58→10:32)
[2024-07-24] MEDS: OFIRMEV 100 IV (01:12)
[2024-07-24] MEDS: DIPRIVAN 100 IV ×5 (01:12→22:17)
[2024-07-24] MEDS: ZOSYN 50 IV ×4 (01:21→20:04)
--- NOTE | 2024-07-24 01:23 | PTCARENOTE ---
GOL on unit. pt continues with full body intermittent jerking, propofol gtt titrated. abx initiated.
[2024-07-24] MEDS: NSS 1000 IV ×3 (03:29→22:22)
[2024-07-24 03:50] LABS: % Basophils 0.1 % (0-2); % Immature Granulocytes 0.7 % (0-0.5); % Lymphocytes 3.9 % (20.5-51.1); % Monocytes 6.3 % (1.7-9.3); Absolute Immature Granulocytes 0.1 10^3/uL (0-0.05); Absolute Lymphocytes 0.5 10^3/uL (1.2-3.4); Absolute Monocytes 0.9 10^3/uL (0.1-0.6); Hematocrit 41.9 % (39.0-52.0); Hemoglobin 15.4 g/dL (13.0-18.0); Mean Corp Hgb Conc. 36.8 g/dL (33.0-37.0); Mean Corpuscular Hgb 29.9 pg (27.0-31.0); Mean Corpuscular Volume 81.4 fL (80.0-94.0); Mean Platelet Volume 9.8 fL (7.4-10.4); Nucleated Red Blood Cells % 0 % (-); Platelet Count 215 10^3/uL (130-400); Red Blood Cell Count 5.15 10^6/uL (4.70-6.10); Red Cell Dist. Width 12.2 % (11.5-14.5); White Blood Cell Count 13.5 10^3/uL (4.8-10.8)
[2024-07-24 03:52] LABS: B.E. -4.3 mmol/L; O2 Saturation % 99.9 % (94-98); O2 Therapy 100; PCO2 30 mmHg (35-48); PO2 152 mmHg (83-108); pH 7.41 (7.35-7.45)
--- NOTE | 2024-07-24 04:03 | PTCARENOTE ---
AM labs sent. ETT repositioned. OGT connected to LIS. neuro status remains unchanged. care ongoing.
[2024-07-24 04:20] LABS: Albumin 3.3 g/dl (3.5-5.0); Alkaline Phosphatase 92 U/L (38-126); Blood Urea Nitrogen 26 mg/dl (9-20); Calcium 8.6 mg/dl (8.4-10.2); Carbon Dioxide 19 mmol/L (22-30); Chloride 111 mmol/L (98-107); Direct Bilirubin 0.5 mg/dl (0.0-0.4); Estimated Creatinine Clearance 116 ml/min; Glucose 103 mg/dl (70-99); Magnesium 1.6 mg/dl (1.6-2.3); Potassium 4.1 mmol/L (3.5-5.1); Sodium 140 mmol/L (135-145); Total Bilirubin 0.8 mg/dl (0.2-1.3); Total Protein 5.5 g/dl (6.3-8.2); eGFR > 60.00
[2024-07-24 04:39] LABS: ALT (SGPT) 1137 U/L (0-50); AST (SGOT) 1223 U/L (17-59)
--- NOTE | 2024-07-24 08:00 | PTCARENOTE ---
Assumed care of patient. Pt rec'd sedated on ventilator. Pt has nonreactive pinpoint pupils...right pupil is misshapen at baseline. No corneal or gag reflex noted. Pt does not withdraw to pain or make any purposeful movements. Unrestrained. S1
S2 reg w/ NSR on monitor. Weak PP. Intubated w/ #7.5 ETT 26cm center lip...current vent settings: 18/450/+5/40%...sats 97%. Lungs clear anteriorly...diminished and coarse in bases. Suctioned orally for scant clear secretions. Abdomen
round...hypo BS. OG -> LIWS...flushed q4h w/ 30mls of NSS and prn...vidal drainage noted. Marmolejo draining cloudy darcy urine w/ sediment. Marmolejo care done. Skin diaphoretic w/ scattered small scabbed areas. Left radial michelle....zeroed and
flushed. IVF's, levophed, fentanyl, and propofol infusing...see interventions. Rectal probe used to obtain temperatures. VS obtained. Will continue to monitor closely.
[2024-07-24] MEDS: KEPPRA 500 MG IV ×2 (08:09→20:04)
[2024-07-24] MEDS: PROTONIX IV 40 MG IV (08:17)
[2024-07-24] MEDS: NSS (PRESERVATIVE FREE) 10 ML IV (08:17)
--- NOTE | 2024-07-24 09:20 | W.PN.HOSP.TC ---
Addendum entered and electronically signed by Scott Dumont MD 07/24/24 16:47:
#Shock liver
#Transaminitis
Supportive care, trend LFTs
Original Note:
Today's Communication/Plan
-
see bold
Assessment / Plan
Assessment / Plan
HPI: 33-year-old male past medical history of cardiac arrest from drug overdose, heroin use, cardiomyopathy, vent dependent respiratory failure, aspiration pneumonia, nephrolithiasis, leukoplakia of tongue, depression, presenting for altered mental
status. He was found unresponsive laying on the couch by his father. Per paramedics he was last awake at 9 AM this morning and EMS was dispatched at 2:07 PM and police found him apneic and pulseless. Patient was given 4 mg of Narcan and CPR was
started. Paramedics arrived and gave additional 4 mg Narcan and was found to be in ventricular fibrillation. He was shocked once with restorationism of sinus rhythm and pulse. He was intubated prior to arrival.
Patient has not used drugs in 2 years. Father denies any suicidal intent recently. Patient does use medical marijuana. He does not drink alcohol and father is not aware of any other drug use.
# Vfib Cardiac arrest secondary to fentanyl/heroin overdose
Appreciate fig bar machine operator input, continue vent management as per fig bar machine operator
EEG shows mild diffuse slowing, neurology consulted
Continue Keppra
#Cardiogenic shock
Wean Levophed as tolerated
Consider cardiology consult if there is hope of neurologic recovery
#Leukocytosis/fever
Continue Zosyn, follow-up blood cultures
#Metabolic acidosis secondary to cardiac arrest
#Acute kidney injury
Resolved with IV fluids, continue IV fluids
History of fentanyl, benzodiazepine, cocaine use
-As per prior UDS
History of cardiomyopathy
-LV ejection fraction is 55-60%
Nephrolithiasis
History of leukoplakia of tongue
Depression
DVT prophylaxis�subcu heparin
Full code
Total time spent to see the patient on the floor, examine the patient, review data and lab results, discuss treatment plan with patient, nursing staff around 51 minutes.
Physical Exam
General: Intubated and sedated, appears acutely ill
HEENT: Normocephalic, Atraumatic
Respiratory: Clear to Auscultation bilaterally
Cardiac: Normal S1/S2, Regular Rate and Rhythm
GI: Soft, Nontender, Nondistended, Normal Bowel Sounds
Extremities: No Clubbing, Cyanosis
Anticipated Discharge: > 48 hours
Subjective/Interval History
-
Date of Service: July 24, 2024
Patient intubated and sedated. Has fever.
Objective Data
-
Labs:
Laboratory Results
07/24/24
03:42
WBC 13.5 H
Hgb 15.4
Hct 41.9
Plt Count 215
HCO3 19.0 L
Sodium 140
Potassium 4.1
Chloride 111 H
Carbon Dioxide 19 L
BUN 26 H
Creatinine 0.9
Glucose 103 H
Calcium 8.6
Total Bilirubin 0.8
AST 1223 H*
ALT 1137 H*
Alkaline Phosphatase 92
Vital Signs:
Vital Signs
Temp Pulse Resp BP Pulse Ox
101 F H 91 18 98/68 100
07/24/24 03:47 07/24/24 06:30 07/24/24 06:30 07/24/24 04:00 07/24/24 07:36
I&O
07/23/24 07/24/24 07/25/24
06:59 06:59 06:59
Intake Total 1723.0 / 1723.0
Output Total 2140 / 2140
Balance -417.0 / -417.0
--- NOTE | 2024-07-24 09:30 | CON.NEURO4 ---
Consultation - Neurology 4
-
CONSULTING PHYSICIAN:Shaan
REFERRING PHYSICIAN: PEPE Young
DICTATED BY: Shaan
DATE/TIME OF REQUEST: 07/23/24
DATE/TIME OF CONSULTATION: 07/24/24
Reason for Consultation: ?anoxic injury
History of Present Illness:
33 year-old male with a history of heroin overdose resulting in encephalopathy in December 2020; had a good recovery neurologically; MRI brain showed no anoxic injury at that time. No seizures noted during continuous EEG monitoring during that
hospitalization. 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
Had not used drugs in 2 years per his father. Had myoclonic jerking movements yesterday after admission and Keppra was started. They have since resolved.
From discharge summary from that admission:
'recently incarcerated for 4-1/2 years, came out and was found unresponsive in his parent's house and out [id number] cardiac arrest for which he was resuscitated for 30-35 minutes and came to the hospital. He wasunresponsive and was put on
hypothermia protocol and was supported with a vent.
He was septic from aspiration pneumonia. He was also in shock requiring vasopressors. Also had JESÚS which resolved. His EF was 35%-40% on an initial assessment, may be secondary to resuscitation,cardiac stunning from cardioversion electrical shocks.
He had issues with bigeminy but no arrhythmias. He had persistent tachycardia which was responsive to beta mary. He had a repeat echocardiogram which showed normalization of EF, and he was seen by Cardiology.
His creatinine all normalized. He had a rhabdomyolysis which could be secondary to cocaine or being on the floor. His urine drug screen was positive for opiates, fentanyl and cocaine. His CPK normalized after a period. All of his electrolyte
disturbances normalized.
He was seen by psychiatrist during the stay. He was put on fentanyl for opiate withdrawal and was put on Depakote and Seroquel whichwere all tapered except Seroquel which he went home on. There were
referrals made to inpatient drug rehab but was not accepted anywhere, and he has been stable and after discussion with [facility], it was felt that this could be done as an outpatient,and he has an appointment on Monday next week. He was
complaining of upper root canal pain, but there was no evidence of obvious infection, was seen by Dental, prescribed antibiotics for five more days and to follow with a dentist as an outpatient.
Patient, on initial presentation, was concerned about anoxic injury because of decerebrate-like posturing but luckily for him, he had an uneventful recovery neurologically. His MRI did not show any evidence of acute intracranial disease.'
Past Medical History: cardiac arrest from drug overdose, heroin use, cardiomyopathy, vent dependent respiratory failure, aspiration pneumonia, nephrolithiasis, leukoplakia of tongue, depression
Past Surgical History: Reports None
Social History
Tobacco: Non-smoker
Alcohol: None
Drug: Marijuana and Narcotics; no drug use in 2 years per patient's father
Allergies
cat dander Allergy (Verified 07/23/24 14:53)
Unknown
house dust Allergy (Verified 07/23/24 14:53)
Unknown
pollen extracts Allergy (Verified 07/23/24 14:53)
Unknown
shrimp Allergy (Verified 07/23/24 14:53)
SWELLING/ITCHY
Home Medications
�Medication �Instructions �Recorded
terbinafine HCl 1 % topical cream 1 applic topical BID All-over Skin 07/23/24
Issues
Review of Symptoms:
Per the HPI. I am unable to obtain a complete review of systems�because of patient's inability to provide history.
Vital Signs
Temp Pulse Resp BP Pulse Ox
101 F H 91 18 98/68 100
07/24/24 03:47 07/24/24 06:30 07/24/24 06:30 07/24/24 04:00 07/24/24 07:36
Lab Results
07/24/24 03:42
07/24/24 03:42
PT 15.6 Sec (11.4-14.6) H 07/23/24 20:59
INR 1.25 07/23/24 20:59
APTT 31.0 Sec (23.4-35.0) 07/23/24 20:59
Sodium 140 mmol/L (135-145) 07/24/24 03:42
Potassium 4.1 mmol/L (3.5-5.1) 07/24/24 03:42
BUN 26 mg/dl (9-20) H 07/24/24 03:42
Glucose 103 mg/dl (70-99) H 07/24/24 03:42
Calcium 8.6 mg/dl (8.4-10.2) 07/24/24 03:42
Phosphorus 2.8 mg/dl (2.5-4.5) 07/23/24 20:14
Ur Buprenorphine Negative (Negative) 07/23/24 15:49
Physical Exam:
The patient is afebrile, heart sounds S1 and S2 are regular, and chest is clear to auscultation bilaterally.
Neurologic Examination:
intubated and sedated on propofol and fentanyl. On cranial nerve assessment, pupils are 1 mm bilateral, round and unreactive. Corneals, gag absent. No withdrawal to noxious stimulation. No posturing. No involuntary movements/myoclonus.
Currently not over-breathing the ventilator. Deep tendon reflexes are trace throughout, toes mute.
Neuro Imaging:
hct, 07/23:
No acute intracranial abnormality noted.
EEG: mild diffuse slowing
Impression:
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 He has a history of a similar
presentation in 2020 and he recovered well neurologically.
Recommendations:
1. EEG result reviewed; continue Keppra--started for myoclonic jerking movements
2. repeat HCT tomorrow
3. wean sedation as able
4. MRI brain when able to assess full extent of possible anoxic injury
5. seizure precautions, neurochecks
Critical care time 70 mins
Will c/t follow.
Discussed patient care with: Sabine Walters, Dr. Hawley, nursing
--- NOTE | 2024-07-24 10:45 | PTCARENOTE ---
Updated GOL on telephone.
--- NOTE | 2024-07-24 11:23 | CM ---
CM following re: discharge planning.
Discussed in Rounds, reviewed pt's chart, met with pt and pt's father at bedside.
Pt is a 33 year old male, admitted with primary dx of Hypercapnic respiratory failure due to drug overdose. Subsequent ventricular fibrillation arrest-status post defibrillation x 1 with rapid regain of circulation. Intubated on the field. Per
Rounds meeting, pt is critically ill: Intubated on mechanical ventilation, continue supportive care.
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 Pt's farther reports he is deeply aware of his son's addiction problem, was at
ER many times in the past. Pt was incarcerated for 5 years for fatal hit and run, has court collections officer: Carmen Byers [phone]. Pt's father stated pt's PO has been notified of pt's admission to .
Per father, pt was in inpatient D&A rehab last year at [facility] and outpatient D&A program at [place]. Pt's father forwarded to me a receipt of pt applying to [employer] for medical assistance. E-form number [id number],
confirmation number [id number]. CM forwarded copies of documents from [facility] of Human services to Medicaid Specialist Steph burroughs she is meeting with pt's father.
PCP: per father, pt does not have PCP and goes to an Urgent care if needed.
Ph[facility]acy: [facility]
D/C plan: uncertain at this time and will depend on pt's progresses.
CM will follow with discharge plan updates as hospitalization progresses
--- NOTE | 2024-07-24 12:00 | PTCARENOTE ---
No major changes in physical assessment since am. Slowly weaning off sedation and pressors per orders. Pt's father at bedside and fully updated. All questions answered...emotional support provided. EEG done this am. Will continue to monitor.
[2024-07-24] MEDS: MAGNESIUM SULFATE 100 IV (12:27)
--- NOTE | 2024-07-24 12:36 | EEG.RPT ---
Electroencephalogram Report
Recording
Date of EE07/24/24
Type of EEG: Routine
Length of EEG recordin minutes
Done with Video Recording: Yes
Patient Status: Inpatient
Recording Conditions: Awake and Drowsy
Hyperventilation Performed: No
Photic Stimulation Performed: Yes
Report
LESS THAN 1 HOUR EEG REPORT
LESS THAN 1 HOUR EEG INTERPRETATION:
Mildly abnormal EEG for age in wakefulness through sleep due to mild diffuse bihemispheric slowing
CLINICAL CORRELATION:
This study was suggestive of mild diffuse cortical dysfunction without focal abnormality. No seizures were recorded.
Clinical correlation is advised.
METHODS:
A 21 channel digitized electroencephalogram (EEG) was performed at the bedside. The 10/20 international system of electrode placement was used with ECG and lateral/vertical eye movements recorded. The RxResults quantitative system was utilized.
QUALITY OF STUDY:
Fair
ELECTROENCEPHALOGRAPHER IMPRESSION(S):
Background
Amplitude: Unremarkable
Anterior-Posterior Organization: Fair, good at times
Maximum: Theta
Asymmetry: None
Sleep
Drowsiness present
Photic Stimulation
Failed to activate the record
ECG
Normal sinus rhythm
--- NOTE | 2024-07-24 12:39 | W.PN.INTV ---
Today's Communication / Plan
Recommendations
Continue mechanical ventilation without change
Wean down sedation
EEG today
Continue antibiotics
Continue IV fluids
N.p.o. for now
Head of the bed elevation
Frequent neurological checks
Neurology to evaluate patient
Assessment
-
33-year-old man with history of drug abuse. Found unresponsive by his father. Last time seen awake was 9 AM. Police arrived and provided Narcan. Subsequently EMS provided more Narcan and patient apparently was on ventricular fibrillation x 1
shock provided with regain of spontaneous circulation. Intubated on the field. ICU consulted 07/23/2024 for further care.
Hypercapnic respiratory failure due to drug overdose-last time seen was 9 AM. Found at 2 PM.
Subsequent ventricular fibrillation arrest-status post defibrillation x 1 with rapid regain of circulation.
Metabolic/respiratory acidosis: pH 7.18/40/301/14
Increased lactic acid postcardiac arrest.
Rule out anoxic brain injury: So far CT negative for bleeding or signs of ischemia or edema.
Possible aspiration event: Right lower lobe atelectasis versus pneumonia on chest x-ray. Reviewed.
Conditions present prior admission:
History of asthma
History of cardiomyopathy, EF 35%, resolved 2020-recovered LVEF in 2022 back to normal.
History of nephrolithiasis
History of Cardiac arrest, asystole, December 2020.
EPI x 5, CPR x 35 min (per EMS)
History of cardiac/respiratory arrest 02/17/2023.
History of Acute renal failure, creatinine 2.8
History of incarceration for 4-1/2 years
Former tobacco history
Assessment and plan:
Critically ill: Intubated on mechanical ventilation. On low-dose vasopressor.
Overbreathing the ventilator.
-
Continue with volume-cycled ventilation
Peak pressure 19 Plateau 17
Breathing on sink mechanical ventilation
ABG this morning with adequate oxygenation and ventilation
Continue mechanical ventilation without change
No plans for spontaneous breathing trial
-
Wean sedation off currently on fentanyl and propofol.
Started on Keppra due to myoclonic jerks overnight
Will reassess neurological status after sedation breaks
So far CT head without acute abnormalities, may need to repeat
EEG has been ordered and is pending
Neurology has been consulted
-
Lactic acid has cleared
Renal function is normal
Nongap metabolic acidosis likely due to normal saline
Continue normal saline for now 100 cc an hour.
Wean off vasopressors, likely requiring some pressors due to sedation.
-
Not bronchospastic on exam.
-
Follow closely for development of lung injury process
Started on Zosyn overnight due to fevers
Possible aspiration event
Tylenol to promote normothermia
Avoid hypotension
-
Respiratory-hypercapnic respiratory failure due to drug overdose/cardiac arrest, PEA-briefly on ventricular tachycardia per EMS. Received 1 shock with rapid conversion and regain of spontaneous circulation.
Toxicology: Positive for amphetamines/cocaine fentanyl and fentanyl a positive.
Status post CPR: Regained spontaneous circulation after one shock. No further arrest. Has remained relatively hemodynamically stable without arrhythmias.
Likely primarily due to respiratory arrest
No indication for TTM at this time, discussed with primary team in the emergency room on admission. Both in agreement.
-
DVT prophylaxis: Lovenox for DVT prophylaxis.
GI prophylaxis: Protonix
I personally discussed with father in detail and explained above 07/23/2024. He states that he is familiar with this clinical scenario. Will continue hemodynamic support. Prognosis is guarded.
Critical care statement: A total of 38 minutes of critical care time was provided for this patient today. This includes management of unstable vital signs, evaluation of the patient at bedside, reviewing the patient's pertinent medical records
including ventilator settings, arterial blood gases, radiographs, microbiology, laboratory evaluations and discussion with primary team, critical care nursing, and respiratory therapy.

Reviewed images.
-
-
Echocardiogram 02/17/2023:
Reviewed, showed normal ejection fraction. Normal left atrial size. No mitral rotation. No aortic regurgitation.
Chest x-ray: Reviewed relatively clear. Possible right lower lobe abnormality.
Subjective Dataa
Subjective Data
Date of Service:
Date of Service: July 24, 2024
Chief Complaint: Nuclear Medicine Physician Follow Up (Drug overdose/hypercapnic respiratory failure requiring ventilation)
Subjective:
Remains on sedation, unresponsive.
Unable to provide history
On mechanical ventilation
On low-dose vasopressor
Review of Systems
General: Unobtainable - Sedation
Objective Data
Data Reviewed
Vital Signs / I&O / Oxygen:
Vital Signs
Temp Pulse Resp BP Pulse Ox
101 F H 90 18 96/68 97
07/24/24 03:47 07/24/24 10:30 07/24/24 10:30 07/24/24 08:00 07/24/24 11:24
Intake and Output
07/23/24 07/24/24 07/25/24
06:59 06:59 06:59
Intake Total 1723.0 / 1723.0
Output Total 2140 / 2140
Balance -417.0 / -417.0
SaO2 [A/C] 100
SaO2 97
Physical Exam
General: Comfortable
HEENT: Normocephalic
Cardiovascular: S1-S2 and Regular Rhythm
Respiratory: Clear and Non-Labored Respirations
GI: Soft and Non Distended
Neurology: Other (Unresponsive, on sedation.)
Skin: Warm
Labs/Micro/Reports
Lab Data
07/24/24 03:42
07/24/24 03:42
Laboratory Results
07/23/24 07/23/24 07/23/24
15:48 20:14 20:59
PT 15.6 H
INR 1.25
APTT 31.0
pH 7.18 L* 7.35
pCO2 40 36
pO2 301 H 110 H
HCO3 14.9 L* 19.9 L
O2 Delivery Level
07/24/24
03:42
PT
INR
APTT
pH 7.41
pCO2 30 L
pO2 152 H
HCO3 19.0 L
O2 Delivery Level 100
--- NOTE | 2024-07-24 16:00 | PTCARENOTE ---
Pt reassessed...no major changes. Waiting on CXR results after PICC line placement. Pt's father at bedside...updated on plan of care. Weaning sedation (as much as possible) per . Will continue to monitor closely.
[2024-07-24] MEDS: LOVENOX 40 MG SC (17:35)
--- NOTE | 2024-07-24 18:40 | VATNOTE ---
PICC retracted 5.5 cm at this time per radiology report for a PICC tip location of cavoatrial junction. PCN notified PICC is OK to use. PCN with d/c PIV in RUE and change IV tubing prior to moving infusions to PICC line per protocol.
--- NOTE | 2024-07-24 20:30 | PTCARENOTE ---
rec'd patient. assessment as documented. neuro status remains unchanged from previous night. ST on monitor. levo gtt remains off, MAP >65. afebrile. +1 LE edema. #7.5 ETT, repositioned, 26 at lip. AC 18/450/5/50%. bite block placed. oral care
provided. OGT to LIS. read intact. prop/fent/IVF gtts continue. goal to wean sedation off overnight, head CT scheduled for AM. care ongoing.
[2024-07-24] MEDS: SUBLIMAZE 100 MCG IV (21:47)
--- NOTE | 2024-07-24 23:05 | PTCARENOTE ---
full bed bath, CHG wipes, read care, oral care, ETT blancas replaced. no changes in assessment noted. care ongoing.
[2024-07-24] MEDS: CARDENE 200 IV (23:42)
[2024-07-25] VITALS: BP 143/94
[2024-07-25 00:01] LABS: Hemoglobin 15.2 g/dL (13.0-18.0)
--- NOTE | 2024-07-25 00:05 | PTCARENOTE ---
SBP in 170s, ICU FLIGHT NURSE made aware. cardene gtt ordered and initiated to maintain SBP goal 120-140, see flowsheet. labs sent.
[2024-07-25] MEDS: SUBLIMAZE 100 MCG IV (00:22)
[2024-07-25 00:23] LABS: Blood Urea Nitrogen 22 mg/dl (9-20); Calcium 8.5 mg/dl (8.4-10.2); Carbon Dioxide 24 mmol/L (22-30); Chloride 109 mmol/L (98-107); Estimated Creatinine Clearance > 125 ml/min; Glucose 125 mg/dl (70-99); Potassium 3.8 mmol/L (3.5-5.1); Sodium 142 mmol/L (135-145); eGFR > 60.00
[2024-07-25 00:27] LABS: Osmolality Urine 780 mOsm/kg (300-900)
[2024-07-25 00:37] LABS: Urine Sodium 72 mmol/L (30-90)
[2024-07-25] MEDS: ZOSYN 50 IV ×4 (02:51→20:47)
--- NOTE | 2024-07-25 03:16 | PTCARENOTE ---
AM labs sent. cardene gtt titrated off, PRN fent bolus given, SBP currently in 120s. fent gtt titrated off. prop gtt weaned per protocol. care ongoing.
[2024-07-25 03:24] LABS: Hemoglobin 15.7 g/dL (13.0-18.0); Mean Corp Hgb Conc. 36.5 g/dL (33.0-37.0); Mean Corpuscular Hgb 30.2 pg (27.0-31.0); Mean Corpuscular Volume 82.7 fL (80.0-94.0); Mean Platelet Volume 9.9 fL (7.4-10.4); Platelet Count 191 10^3/uL (130-400); Red Cell Dist. Width 12.5 % (11.5-14.5); White Blood Cell Count 14.7 10^3/uL (4.8-10.8)
[2024-07-25 03:27] LABS: B.E. -2.2 mmol/L; HCO3 24.7 mmol/L (21-28); O2 Saturation % 98.7 % (94-98); PCO2 49 mmHg (35-48); PO2 96 mmHg (83-108); pH 7.31 (7.35-7.45)
[2024-07-25 03:52] LABS: Albumin 3.6 g/dl (3.5-5.0); Alkaline Phosphatase 105 U/L (38-126); Blood Urea Nitrogen 21 mg/dl (9-20); Calcium 8.8 mg/dl (8.4-10.2); Carbon Dioxide 28 mmol/L (22-30); Chloride 107 mmol/L (98-107); Estimated Creatinine Clearance > 125 ml/min; Glucose 146 mg/dl (70-99); Magnesium 1.9 mg/dl (1.6-2.3); Phosphorus 2.9 mg/dl (2.5-4.5); Potassium 3.8 mmol/L (3.5-5.1); Sodium 143 mmol/L (135-145); Total Bilirubin 0.6 mg/dl (0.2-1.3); Total Protein 5.8 g/dl (6.3-8.2); eGFR > 60.00
[2024-07-25 04:00] VITALS: BP 98/66
[2024-07-25 04:01] LABS: ALT (SGPT) 1015 U/L (0-50); AST (SGOT) 724 U/L (17-59)
[2024-07-25 04:18] LABS: TSH Reflex To Free T4 0.03 uIU/ml (0.47-4.68)
--- NOTE | 2024-07-25 04:33 | PTCARENOTE ---
JESSICA updated this morning on pt status
[2024-07-25 04:47] LABS: Free T4 1.31 ng/dl (0.78-2.19)
[2024-07-25 05:05] VITALS: BMI 22.3
--- NOTE | 2024-07-25 06:07 | PTCARENOTE ---
rectal temp 101.5, cooling blanket ordered and applied. goal temp 100.4. see flowsheet
[2024-07-25] MEDS: KEPPRA 500 MG IV ×2 (07:39→20:47)
[2024-07-25] MEDS: NSS (PRESERVATIVE FREE) 10 ML IV (07:40)
[2024-07-25] MEDS: PROTONIX IV 40 MG IV (07:40)
[2024-07-25 07:41] VITALS: BP 122/87
--- NOTE | 2024-07-25 08:17 | W.PN.HOSP.TC ---
Today's Communication/Plan
-
see bold
Assessment / Plan
Assessment / Plan
HPI: 33-year-old male past medical history of cardiac arrest from drug overdose, heroin use, cardiomyopathy, vent dependent respiratory failure, aspiration pneumonia, nephrolithiasis, leukoplakia of tongue, depression, presenting for altered mental
status. He was found unresponsive laying on the couch by his father. Per paramedics he was last awake at 9 AM this morning and EMS was dispatched at 2:07 PM and police found him apneic and pulseless. Patient was given 4 mg of Narcan and CPR was
started. Paramedics arrived and gave additional 4 mg Narcan and was found to be in ventricular fibrillation. He was shocked once with judaism of sinus rhythm and pulse. He was intubated prior to arrival.
Patient has not used drugs in 2 years. Father denies any suicidal intent recently. Patient does use medical marijuana. He does not drink alcohol and father is not aware of any other drug use.
# Vfib Cardiac arrest secondary to fentanyl/heroin overdose
Appreciate dental instructor input, continue vent management as per dental instructor
EEG shows mild diffuse slowing, neurology consulted
Head CT findings consistent with global anoxia, continue Keppra
#Cardiogenic shock
Status post Levophed
#Leukocytosis/fever
Continue Zosyn
#Metabolic acidosis secondary to cardiac arrest
#Acute kidney injury
Resolved with IV fluids
#Shock liver
#Transaminitis
Supportive care, trend LFTs
History of fentanyl, benzodiazepine, cocaine use
-As per prior UDS
History of cardiomyopathy
-LV ejection fraction is 55-60%
Nephrolithiasis
History of leukoplakia of tongue
Depression
DVT prophylaxis�subcu heparin
Full code
Updated father at bedside 07/25
Total time spent to see the patient on the floor, examine the patient, review data and lab results, discuss treatment plan with patient, nursing staff around 50 minutes.
Physical Exam
General: Intubated, appears acutely ill
HEENT: Normocephalic, Atraumatic
Respiratory: Clear to Auscultation bilaterally
Cardiac: Normal S1/S2, Regular Rate and Rhythm
GI: Soft, Nontender, Nondistended, Normal Bowel Sounds
Extremities: No Clubbing, Cyanosis
Anticipated Discharge: > 48 hours
Subjective/Interval History
-
Date of Service: July 24, 2024
Patient intubated. He has been off of sedation since this morning. Continues to have fever.
Objective Data
-
Vital Signs:
Vital Signs
Temp Pulse Resp BP Pulse Ox
98.3 F 87 18 107/75 100
07/24/24 16:00 07/24/24 13:00 07/24/24 13:00 07/24/24 12:00 07/24/24 16:08
I&O
07/23/24 07/24/24 07/25/24
06:59 06:59 06:59
Intake Total 1723.0 / 1879.6 1664.0 / 1664.0
Output Total 2140 / 2215 525 / 525
Balance -417.0 / -335.4 1139.0 / 1139.0
--- NOTE | 2024-07-25 08:48 | PTCARENOTE ---
Received pt via handoff. Pt vomited during assessment. Neuro status remains unchanged. Possible decorticate posturing and shivering. Pupils 1-2 nonreactive. Right pupil santo shape. No cough or gag reflex present. Sinus Tachy on monitor. Weak
pedal pulses. +1 edema on LE. Left radial Cely leveled, zeroed and correlated with cuff. #7.5 ETT tube 26@ the lip. Vent settings: 22/450/40%/5. Coarse rhonchi bilaterally throughout. Bite block in place. Excessive oral secretions. OG tube set to
low intermittent suctioning for large amounts of brown bilious drainage. Marmolejo intact. Urine tea colored. Cooling blanket on hold.
[2024-07-25] MEDS: SUBLIMAZE 50 MCG IV ×3 (10:38→22:59)
--- NOTE | 2024-07-25 10:58 | PTCARENOTE ---
Taken to CT scan, returned. Upon arrival on the unit pt. teeth clenched down on ET tube, unable to ventilate or suction. Dr. Hawley at bedside. Fentanyl given per order. Updated with fever and shivering, cooling blanket resumed. Per structural metal fabricator apprentice to
minimize sedation. Father at bedside.
--- NOTE | 2024-07-25 11:20 | W.PN.NEURO.1 ---
Today's Communication / Plan
-
continuous eeg
hypertonic saline
wean sedation
Neuro Assessment/Plan
Assessment
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 He has a history of a similar presentation in
2020 and he recovered well neurologically. Repeat HCT done this AM shows global anoxic injury.
Plan
Recommendations:
-continue Keppra--started for myoclonic jerking movements; continuous EEG monitoring
-hypertonic saline per protocol
- repeat HCT tomorrow
- wean sedation as able
- MRI brain when/if able to assess full extent of possible anoxic injury
-seizure precautions, neurochecks
-reviewed with patient's father at bedside
Critical care time 40 mins
Subjective/Objective
Subjective Data
Date of Service: July 25, 2024
repeat HCT shows evidence of anoxic injury
no myoclonic jerks
sedation being weaned
Objective Data
Vital Signs
Temp Pulse Resp BP Pulse Ox
101.9 F H 120 22 122/87 100
07/25/24 10:56 07/25/24 11:00 07/25/24 11:00 07/25/24 07:41 07/25/24 11:16
Lab Results
07/25/24 02:59
PT 15.6 Sec (11.4-14.6) H 07/23/24 20:59
INR 1.25 07/23/24 20:59
APTT 31.0 Sec (23.4-35.0) 07/23/24 20:59
Sodium 143 mmol/L (135-145) 07/25/24 02:59
Potassium 3.8 mmol/L (3.5-5.1) 07/25/24 02:59
BUN 21 mg/dl (9-20) H 07/25/24 02:59
Glucose 146 mg/dl (70-99) H 07/25/24 02:59
Calcium 8.8 mg/dl (8.4-10.2) 07/25/24 02:59
Phosphorus 2.9 mg/dl (2.5-4.5) 07/25/24 02:59
Ur Buprenorphine Negative (Negative) 07/23/24 15:49
Patient Allergies
cat dander Allergy (Verified 07/23/24 14:53)
Unknown
house dust Allergy (Verified 07/23/24 14:53)
Unknown
pollen extracts Allergy (Verified 07/23/24 14:53)
Unknown
shrimp Allergy (Verified 07/23/24 14:53)
SWELLING/ITCHY
Physical Exam
-
Intubated, off sedation. On cranial nerve assessment, pupils are 1 mm bilateral, round and unreactive. No withdrawal to noxious stimulation. No posturing. No involuntary movements/myoclonus. Deep tendon reflexes are trace throughout, toes
mute.
[2024-07-25] MEDS: SODIUM CHLORIDE 3% 250 IV ×3 (11:34→23:25)
[2024-07-25] MEDS: NSS 1000 IV ×2 (12:06→20:47)
[2024-07-25] MEDS: TORADOL 15 MG IV (12:08)
--- NOTE | 2024-07-25 12:19 | W.PN.INTV ---
Today's Communication / Plan
Recommendations
Continue supportive care
Mechanical ventilation settings without change
1 dose of Toradol
Haldol as needed for fevers if they continue despite nonpharmacological measures of temperature control
Unable to use Tylenol due to increased LFTs
Continue Keppra
Minimize sedation
EEG monitoring per neurology
Prognosis is guarded
Assessment
-
33-year-old man with history of drug abuse. Found unresponsive by his father. Last time seen awake was 9 AM. Police arrived and provided Narcan. Subsequently EMS provided more Narcan and patient apparently was on ventricular fibrillation x 1
shock provided with regain of spontaneous circulation. Intubated on the field. ICU consulted 07/23/2024 for further care.
Hypercapnic respiratory failure due to drug overdose-last time seen was 9 AM. Found at 2 PM.
Subsequent ventricular fibrillation arrest-status post defibrillation x 1 with rapid regain of circulation.
Metabolic/respiratory acidosis: pH 7.18/40/301/14
Increased lactic acid postcardiac arrest.
Rule out anoxic brain injury: So far CT negative for bleeding or signs of ischemia or edema.
Possible aspiration event: Right lower lobe atelectasis versus pneumonia on chest x-ray. Reviewed.
Conditions present prior admission:
History of asthma
History of cardiomyopathy, EF 35%, resolved 2020-recovered LVEF in 2022 back to normal.
History of nephrolithiasis
History of Cardiac arrest, asystole, December 2020.
EPI x 5, CPR x 35 min (per EMS)
History of cardiac/respiratory arrest 02/17/2023.
History of Acute renal failure, creatinine 2.8
History of incarceration for 4-1/2 years
Former tobacco history
Assessment and plan:
Critically ill: Intubated on mechanical ventilation.
No meaningful neurological recovery as of 07/25/2024.
-
Continue with volume-cycled ventilation
Respiratory mechanics acceptable.
Breathing on sink mechanical ventilation
ABG this morning with adequate oxygenation and ventilation
Continue mechanical ventilation without change
No plans for spontaneous breathing trial
-
Propofol and fentanyl has been discontinued since earlier in the morning 07/25/2024.
Patient is rigid
Now shivering
Biting the ET tube.
Okay to give fentanyl as needed
For sure and start with Toradol. If shivering continues to be significant then Haldol will need to be given.
Continue Keppra due to myoclonic jerks overnight
Will reassess neurological status after sedation breaks
CT head 07/25/2024: Reviewed consistent with global anoxia. No evidence for bleeding.
Discussed with neurology: EEG continuously will be monitored.
Prognosis for recovery are poor.
Hypertonic saline being considered by neurology.
Father was updated on the above.
-
Lactic acid has cleared
Renal function is normal
[place]ongap metabolic acidosis likely due to normal saline
Continue normal saline for now 100 cc an hour.
Off vasopressors.
-
Not bronchospastic on exam.
-
Follow fever curve, unable to use Tylenol due to increased LFTs. Will give 1 dose of Toradol. Nonpharmacological interventions as well.
Follow closely for development of lung injury process
Continue Zosyn overnight due to fevers
Possible aspiration event
Avoid hypotension
-
Respiratory-hypercapnic respiratory failure due to drug overdose/cardiac arrest, PEA-briefly on ventricular tachycardia per EMS. Received 1 shock with rapid conversion and regain of spontaneous circulation.
Toxicology: Positive for amphetamines/cocaine fentanyl and fentanyl a positive.
Status post CPR: Regained spontaneous circulation after one shock. No further arrest. Has remained relatively hemodynamically stable without arrhythmias.
Likely primarily due to respiratory arrest
No indication for TTM at this time, discussed with primary team in the emergency room on admission. Both in agreement.
-
DVT prophylaxis: Lovenox for DVT prophylaxis.
GI prophylaxis: Protonix
I personally discussed with father in detail and explained above 07/23/2024, 07/24/2024 and 07/25/2024. He states that he is familiar with this clinical scenario. Will continue hemodynamic support. Prognosis is guarded. No meaningful recovery.
Most recent CT head 07/25/2024 consistent with global anoxia.
Case discussed with neurology.
Critical care statement: A total of 40 minutes of critical care time was provided for this patient today. This includes management of unstable vital signs, evaluation of the patient at bedside, reviewing the patient's pertinent medical records
including ventilator settings, arterial blood gases, radiographs, microbiology, laboratory evaluations and discussion with primary team, critical care nursing, and respiratory therapy.

Reviewed images.
-
-
Echocardiogram 02/17/2023:
Reviewed, showed normal ejection fraction. Normal left atrial size. No mitral rotation. No aortic regurgitation.
Chest x-ray: Reviewed relatively clear. Possible right lower lobe abnormality.
Subjective Dataa
Subjective Data
Date of Service:
Date of Service: July 25, 2024
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
Subjective:
Unfortunately, no meaningful neurological recovery.
Now he is febrile, shivering.
Review of Systems
General: Unobtainable - Pat Unresp
Objective Data
Data Reviewed
Vital Signs / I&O / Oxygen:
Vital Signs
Temp Pulse Resp BP Pulse Ox
100.1 F 116 22 122/87 100
07/25/24 12:00 07/25/24 12:00 07/25/24 12:00 07/25/24 07:41 07/25/24 12:00
Intake and Output
07/24/24 07/25/24 07/26/24
06:59 06:59 06:59
Intake Total 1723.0 / 1879.6 3417.8 / 3417.8 250 / 250
Output Total 2140 / 2215 1895 / 1895 625 / 625
Balance -417.0 / -335.4 1522.8 / 1522.8 -375 / -375
SaO2 [A/C] 100
SaO2 100
Physical Exam
General: Comfortable
HEENT: Normocephalic
Cardiovascular: S1-S2 and Regular Rhythm
Respiratory: Clear and Non-Labored Respirations
GI: Soft and Non Distended
Neurology: Other (Unresponsive, on sedation. Minimal respiratory effort. No gag reflex. Pupils equals/small/minimal response to light. No withdrawal to pain.) and Other (Posturing/rigid.)
Skin: Warm
Labs/Micro/Reports
Lab Data
07/25/24 02:59
Laboratory Results
07/25/24
02:59
pH 7.31 L
pCO2 49 H
pO2 96
HCO3 24.7
O2 Delivery Level
[2024-07-25 12:36] LABS: Sodium 142 mmol/L (135-145)
--- NOTE | 2024-07-25 12:59 | PTCARENOTE ---
Pt tachy, hypertensive and shivering Toradol administered per Dr. Hawley. Cooling blanket off. EEG placed. Family at bedside.
--- NOTE | 2024-07-25 15:05 | CM ---
CM following re: discharge planning.
Discussed in Rounds, reviewed pt's chart, met with pt and pt's father at bedside. Per Rounds meeting, pt remains intubated, continue supportive care.
[facility] [place] Medicaid specialist following.
D/C plan: uncertain at this time and will depend on pt's progress.
CM will follow with discharge plan updates as hospitalization progresses
--- NOTE | 2024-07-25 15:25 | W.PN.UPDATE ---
Update Note
Progress Note Update
Reviewed continuous EEG through 1519; no clear PDR, +muscle artifact obscuring much of the background. No epileptiform abnormalities noted.
[2024-07-25] MEDS: TRANDATE 10 MG IV (16:03)
[2024-07-25] MEDS: HALDOL 2 MG IV (16:19)
[2024-07-25] MEDS: LOVENOX 40 MG SC (16:19)
--- NOTE | 2024-07-25 16:26 | PTCARENOTE ---
assessments per work list. patient with diminished urine output, intermittently shivering. Strings Teacher updated, orders received. haldol given for shivering per orders. labetolol prn administered. continues to have copious oral secretions. large
amount from [place] s[place].
[2024-07-25 17:26] LABS: Sodium 145 mmol/L (135-145)
--- NOTE | 2024-07-25 18:10 | PTCARENOTE ---
Addendum entered by Susan Hastings RN 07/25/24 18:24:
cardene initiated
Original Note:
patient temp 102, shivering. hypertensive. Dr Hawley updated. fentanyl bolus given. orders pending
[2024-07-25] MEDS: CARDENE 200 IV (18:17)
--- NOTE | 2024-07-25 19:10 | PTCARENOTE ---
Addendum entered by Jasson Comer RN 07/25/24 21:15:
Pt. cont. to be febrile now 102. Target temp on machine set to 100.4 at change of shift, informed ICU REFERENCE AND INSTRUCTION LIBRARIAN, target temp now adjusted to 99.5 (Auto) on cooling blanket.
Addendum entered by Jasson Comer RN 07/25/24 20:58:
Sustained tachycardia 150s, Lopressor ordered.
Original Note:
Assumed care of patient approx 1900.
Remains intubated, CT 07/25 showing evidence of diffuse anoxic brain injury.
Unknown downtime, NO TTM, of note cooling blanket in use for fever management, TMAX goal of < 100.4.
SBP goal of 140-160, Cardene gtt initiated, remains sinus tach, hypertensive.
3% boluses given for cerebral edema management, next NA lab 2300.
Pupils are =/ unreactive at 2mm. No purposeful movement off sedation, rigid, decerebrate posturing, bruxism noted.
Tolerating ventilator, not overbreathing.
[2024-07-25] MEDS: LOPRESSOR 5 MG IV (20:55)
[2024-07-25 23:12] LABS: Blood Urea Nitrogen 22 mg/dl (9-20); Carbon Dioxide 29 mmol/L (22-30); Chloride 109 mmol/L (98-107); Estimated Creatinine Clearance > 125 ml/min; Glucose 120 mg/dl (70-99); Potassium 3.7 mmol/L (3.5-5.1); Sodium 147 mmol/L (135-145); eGFR > 60.00
--- NOTE | 2024-07-26 00:24 | PTCARENOTE ---
Pt. dumping urine, past two hours has been 600-800mls/hr. ICU DIAMOND aware, BMP sent, NA 147, cont. bolus 3%.
Pt. at temp 99.5, will keep cooling blanket on per icu diamond.
Neuro status remains unchanged GCS 4t, no purposeful movements, absent protective reflexes.
Remains sinus tach, BP goals maintained on 5 of cardene gtt.
[2024-07-26] MEDS: LOPRESSOR 5 MG IV ×3 (01:11→16:07)
[2024-07-26] MEDS: SUBLIMAZE 50 MCG IV ×6 (01:29→18:31)
[2024-07-26] MEDS: CARDENE 200 IV (01:58)
[2024-07-26] MEDS: ZOSYN 50 IV ×4 (01:59→19:48)
--- NOTE | 2024-07-26 03:46 | PTCARENOTE ---
Neurological status remains unchanged.
GCS 4T, pupils 1mm =/NR, no protective reflexes, decerebrate posturing/myoclonic jerking noted.
Sinus tach persists, lopressor added PRN, Cardene gtt remains on.
Still dumping urine, trending BMPs.
[2024-07-26 04:39] LABS: Hematocrit 46.7 % (39.0-52.0); Hemoglobin 16.3 g/dL (13.0-18.0); Mean Corp Hgb Conc. 34.9 g/dL (33.0-37.0); Platelet Count 184 10^3/uL (130-400); Red Blood Cell Count 5.43 10^6/uL (4.70-6.10); Red Cell Dist. Width 12.3 % (11.5-14.5); White Blood Cell Count 12.6 10^3/uL (4.8-10.8)
[2024-07-26 05:00] LABS: AST (SGOT) 504 U/L (17-59); Albumin 3.8 g/dl (3.5-5.0); Alkaline Phosphatase 107 U/L (38-126); Blood Urea Nitrogen 21 mg/dl (9-20); Calcium 9.2 mg/dl (8.4-10.2); Carbon Dioxide 30 mmol/L (22-30); Chloride 111 mmol/L (98-107); Estimated Creatinine Clearance > 125 ml/min; Glucose 114 mg/dl (70-99); Magnesium 1.8 mg/dl (1.6-2.3); Phosphorus 1.8 mg/dl (2.5-4.5); Potassium 3.3 mmol/L (3.5-5.1); Sodium 151 mmol/L (135-145); Total Protein 6.4 g/dl (6.3-8.2); Triglycerides 124 mg/dl (10-149); eGFR > 60.00
--- NOTE | 2024-07-26 05:06 | PTCARENOTE ---
GOL sales support representative updated.
[2024-07-26 05:09] LABS: ALT (SGPT) 792 U/L (0-50)
[2024-07-26] MEDS: SODIUM CHLORIDE 3% 250 IV (05:15)
[2024-07-26] MEDS: NSS 1000 IV ×2 (05:16→18:15)
[2024-07-26 06:00] VITALS: BMI 22.1
[2024-07-26] MEDS: POTASSIUM PHOSPHATE 259.0909 MEQ IV (06:15)
[2024-07-26] MEDS: PROTONIX IV 40 MG IV (07:24)
[2024-07-26] MEDS: NSS (PRESERVATIVE FREE) 10 ML IV (07:25)
[2024-07-26] MEDS: KEPPRA 500 MG IV ×2 (07:28→19:49)
--- NOTE | 2024-07-26 08:00 | W.PN.NEURO.1 ---
Today's Communication / Plan
-
discontinue Keppra--started for myoclonic jerking movements; continuous EEG monitoring
-hypertonic saline per protocol, discontinue
- wean sedation as able
-reviewed with patient's father at bedside
Neuro Assessment/Plan
Assessment
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 He has a history of a similar presentation in
2020 and he recovered well neurologically. Repeat HCT performed on several occasions continue to demonstrate profound global anoxic injury.
There is no significant likelihood that the patient will have any meaningful neurological recovery based on lack of responsiveness, unchanged over the course of several days, and current CT of head findings.
Plan
Recommendations:
discontinue Keppra--started for myoclonic jerking movements; continuous EEG monitoring
-hypertonic saline per protocol, discontinue
- wean sedation as able
-reviewed with patient's father at bedside
We will follow peripherally.
Subjective/Objective
Subjective Data
Date of Service: July 26, 2024
Patient unable to provide his own medical history.
Objective Data
Vital Signs
Temp Pulse Resp BP Pulse Ox
38.1 C H 144 30 154/89 100
07/26/24 07:00 07/26/24 07:28 07/26/24 04:00 07/26/24 07:28 07/26/24 07:48
Lab Results
07/26/24 04:17
PT 15.6 Sec (11.4-14.6) H 07/23/24 20:59
INR 1.25 07/23/24 20:59
APTT 31.0 Sec (23.4-35.0) 07/23/24 20:59
Sodium 151 mmol/L (135-145) H 07/26/24 04:17
Sodium Cancelled 07/26/24 04:17
Potassium 3.3 mmol/L (3.5-5.1) L 07/26/24 04:17
BUN 21 mg/dl (9-20) H 07/26/24 04:17
Glucose 114 mg/dl (70-99) H 07/26/24 04:17
Calcium 9.2 mg/dl (8.4-10.2) 07/26/24 04:17
Phosphorus 1.8 mg/dl (2.5-4.5) L 07/26/24 04:17
Ur Buprenorphine Negative (Negative) 07/23/24 15:49
Patient Allergies
cat dander Allergy (Verified 07/23/24 14:53)
Unknown
house dust Allergy (Verified 07/23/24 14:53)
Unknown
pollen extracts Allergy (Verified 07/23/24 14:53)
Unknown
shrimp Allergy (Verified 07/23/24 14:53)
SWELLING/ITCHY
Review of Systems
-
Unable to obtain full review of systems at this time due to: Other (Unresponsive)
History Source: Patient
All other systems: Reviewed and negative
Physical Exam
-
Intubated, off sedation. On cranial nerve assessment, pupils are 1 mm bilateral, round and unreactive. No withdrawal to noxious stimulation. No posturing. Deep tendon reflexes are trace throughout, toes mute.
Psych: Unable to Assess
Extended Neurological Exam
Mood & Affect: Unable to Assess
Memory: Unable to Assess
Involuntary Movement: Other (Diffuse tremulousness with suggestion of decorticate posturing in bilateral upper extremities)
Speech: Unable to Assess
Cranial Nerve II: Left Eye: Pupillary Size Unremarkable and Unable to Assess Visual Aaron
Cranial Nerve II: Right Eye: Pupillary Size Unremarkable and Unable to Assess Visual Aaron
Gait & Station: Unable to Assess
Data Reviewed
-
CT Head: Report Reviewed and Image Reviewed
Labs: Report Reviewed
Reviewed with: Physician and Family
Old Records: Summarized
--- NOTE | 2024-07-26 08:46 | W.PN.HOSP.TC ---
Today's Communication/Plan
-
Father informed of poor prognosis, unlikely to have neurologic recovery
Father agreed to be DNR
Is a candidate for organ donation
Assessment / Plan
Assessment / Plan
HPI: 33-year-old male past medical history of cardiac arrest from drug overdose, heroin use, cardiomyopathy, vent dependent respiratory failure, aspiration pneumonia, nephrolithiasis, leukoplakia of tongue, depression, presenting for altered mental
status. He was found unresponsive laying on the couch by his father. Per paramedics he was last awake at 9 AM this morning and EMS was dispatched at 2:07 PM and police found him apneic and pulseless. Patient was given 4 mg of Narcan and CPR was
started. Paramedics arrived and gave additional 4 mg Narcan and was found to be in ventricular fibrillation. He was shocked once with islam of sinus rhythm and pulse. He was intubated prior to arrival.
Patient has not used drugs in 2 years. Father denies any suicidal intent recently. Patient does use medical marijuana. He does not drink alcohol and father is not aware of any other drug use.
#Acute hypercapnic respiratory failure
#Ventricular fibrillation cardiac arrest secondary to fentanyl/heroin overdose
Appreciate metal miner input, continue vent management as per metal miner
EEG shows mild diffuse slowing, neurology consulted
Head CT findings consistent with global anoxia, s/p Keppra
Father informed of poor prognosis, pt unlikely to have neurologic recovery
Father agreed to be DNR
Is a candidate for organ donation
#Cardiogenic shock
Status post Levophed
#Leukocytosis/fever
Continue Zosyn
#Tachycardia
#Hypertension
Status post Cardene drip
#Metabolic acidosis secondary to cardiac arrest
#Acute kidney injury
Resolved with IV fluids
#Shock liver
#Transaminitis
Supportive care, trend LFTs
History of fentanyl, benzodiazepine, cocaine use
-As per prior UDS
History of cardiomyopathy
-LV ejection fraction is 55-60%
Nephrolithiasis
History of leukoplakia of tongue
Depression
DVT prophylaxis�subcu heparin
Full code
Updated father at bedside 07/25, 07/26
Total time spent to see the patient on the floor, examine the patient, review data and lab results, discuss treatment plan with patient, nursing staff around 55 minutes.
Physical Exam
General: Intubated, appears acutely ill
HEENT: Normocephalic, Atraumatic
Respiratory: Clear to Auscultation bilaterally
Cardiac: Normal S1/S2, Regular Rate and Rhythm
GI: Soft, Nontender, Nondistended, Normal Bowel Sounds
Extremities: No Clubbing, Cyanosis
Anticipated Discharge: > 48 hours
Subjective/Interval History
-
Date of Service: July 26, 2024
Patient intubated. Remains unresponsive.
Objective Data
-
Labs:
Laboratory Results
07/25/24 07/26/24 07/26/24
22:49 04:17 04:17
WBC 12.6 H
Hgb 16.3
Hct 46.7
Plt Count 184
Sodium 147 H 151 H Cancelled
Potassium 3.7 3.3 L
Chloride 109 H 111 H
Carbon Dioxide 29 30
BUN 22 H 21 H
Creatinine 0.7 0.7
Glucose 120 H 114 H
Calcium 9.0 9.2
Total Bilirubin 1.0
AST 504 H*
ALT 792 H*
Alkaline Phosphatase 107
07/26/24
11:00
WBC
Hgb
Hct
Plt Count
Sodium Pending
Potassium
Chloride
Carbon Dioxide
BUN
Creatinine
Glucose
Calcium
Total Bilirubin
AST
ALT
Alkaline Phosphatase
Vital Signs:
Vital Signs
Temp Pulse Resp BP Pulse Ox
99.2 F 144 30 154/89 100
07/26/24 08:00 07/26/24 07:28 07/26/24 04:00 07/26/24 07:28 07/26/24 08:15
I&O
07/25/24 07/26/24 07/27/24
06:59 06:59 06:59
Intake Total 3417.8 / 3417.8 3377.5 / 3554.7 354.4 / 354.4
Output Total 1895 / 1895 6230 / 6610 380 / 380
Balance 1522.8 / 1522.8 -2852.5 / -3055.3 -25.6 / -25.6
[2024-07-26] MEDS: TRANDATE 10 MG IV (11:09)
[2024-07-26 12:47] LABS: B.E. 5.6 mmol/L; HCO3 28.9 mmol/L (21-28); PCO2 37 mmHg (35-48); PO2 100 mmHg (83-108)
[2024-07-26 12:59] LABS: Sodium 151 mmol/L (135-145)
--- NOTE | 2024-07-26 13:02 | W.PN.INTV ---
Today's Communication / Plan
Recommendations
Continue supportive care as above
Prognosis is very poor
Family likely will withdraw care within 48 hours. Organ donation will be an option at that time.
Assessment
-
33-year-old man with history of drug abuse. Found unresponsive by his father. Last time seen awake was 9 AM. Police arrived and provided Narcan. Subsequently EMS provided more Narcan and patient apparently was on ventricular fibrillation x 1
shock provided with regain of spontaneous circulation. Intubated on the field. ICU consulted 07/23/2024 for further care.
Hypercapnic respiratory failure due to drug overdose-last time seen was 9 AM. Found at 2 PM.
Subsequent ventricular fibrillation arrest-status post defibrillation x 1 with rapid regain of circulation.
Metabolic/respiratory acidosis: pH 7.18/40/301/14
Increased lactic acid postcardiac arrest.
Rule out anoxic brain injury: So far CT negative for bleeding or signs of ischemia or edema.
Possible aspiration event: Right lower lobe atelectasis versus pneumonia on chest x-ray. Reviewed.
Conditions present prior admission:
History of asthma
History of cardiomyopathy, EF 35%, resolved 2020-recovered LVEF in 2022 back to normal.
History of nephrolithiasis
History of Cardiac arrest, asystole, December 2020.
EPI x 5, CPR x 35 min (per EMS)
History of cardiac/respiratory arrest 02/17/2023.
History of Acute renal failure, creatinine 2.8
History of incarceration for 4-1/2 years
Former tobacco history
Assessment and plan:
Critically ill: Intubated on mechanical ventilation.
No meaningful neurological recovery as of 07/26/2024.
Intermittently febrile, hypertensive, tachycardic. Suspect autonomic dysfunction.
-
Continue with volume-cycled ventilation
Respiratory mechanics acceptable.
ABG 07/26/2024: 7.50/37/100. Patient has been tachypneic, likely centrally driven.
Will adjust mechanical ventilation as able.
Sedation as necessary. Has been off drips.
No plans for spontaneous breathing trial
-
Patient is rigid
Tachycardia, hypertension. Posturing at times.
Biting the ET tube.
Continue sedation as needed.
Haldol as needed for shivering.
Fever control with Tylenol as well as Toradol.
-
CT head 07/25/2024: Reviewed consistent with global anoxia. No evidence for bleeding.
Repeat CT chest 07/26/2024: Ongoing signs of progressive global anoxic brain injury. Severe
EEG monitoring per neurology.
Keppra has been discontinued
I have discussed the case with primary team and neurology.
I have updated his father at the bedside multiple times.
Prognosis for recovery are poor.
Hypertonic saline discontinued
-
Lactic acid has cleared
Renal function is normal
Nongap metabolic acidosis likely due to normal saline
Continue normal saline for now 100 cc an hour.
Off vasopressors.
-
So far no evidence for acute lung injury.
Continue Zosyn overnight due to fevers complete 5 days
Possible aspiration event
Avoid hypotension
-
Respiratory-hypercapnic respiratory failure due to drug overdose/cardiac arrest, PEA-briefly on ventricular tachycardia per EMS. Received 1 shock with rapid conversion and regain of spontaneous circulation.
Toxicology: Positive for amphetamines/cocaine fentanyl and fentanyl a positive.
Status post CPR: Regained spontaneous circulation after one shock. No further arrest. Has remained relatively hemodynamically stable without arrhythmias.
Likely primarily due to respiratory arrest
No indication for TTM at this time, discussed with primary team in the emergency room on admission. Both in agreement.
-
DVT prophylaxis: Lovenox for DVT prophylaxis.
GI prophylaxis: Protonix
I personally discussed with father in detail and explained above 07/23/2024, 07/24/2024 and 07/25/2024,07/26/2024. He states that he is familiar with this clinical scenario. Will continue hemodynamic support. Prognosis is poor for meaningful
recovery.
Discussed the case with neurology and primary team. Chances of recovery are minimal, significant brain edema. Appears family would not want to continue with resuscitation. Organ donation is an option.
Continue support for now.
Critical care statement: A total of 45, minutes of critical care time was provided for this patient today. This includes management of unstable vital signs, evaluation of the patient at bedside, reviewing the patient's pertinent medical records
including ventilator settings, arterial blood gases, radiographs, microbiology, laboratory evaluations and discussion with primary team, critical care nursing, and respiratory therapy.

Reviewed images.
-
-
Echocardiogram 02/17/2023:
Reviewed, showed normal ejection fraction. Normal left atrial size. No mitral rotation. No aortic regurgitation.
Chest x-ray: Reviewed relatively clear. Possible right lower lobe abnormality.
Subjective Dataa
Subjective Data
Date of Service:
Date of Service: July 26, 2024
Chief Complaint: Health Science Specialist Follow Up (Drug overdose/hypercapnic respiratory failure requiring ventilation)
Subjective:
Unfortunately, no meaningful neurological recovery.
Remains on mechanical ventilation.
Unresponsive.
Review of Systems
General: Unobtainable - Pat Unresp
Objective Data
Data Reviewed
Vital Signs / I&O / Oxygen:
Vital Signs
Temp Pulse Resp BP Pulse Ox
99.9 F 136 34 177/103 99
07/26/24 12:00 07/26/24 11:09 07/26/24 10:00 07/26/24 11:09 07/26/24 12:00
Intake and Output
07/25/24 07/26/24 07/27/24
06:59 06:59 06:59
Intake Total 3417.8 / 3417.8 3377.5 / 3554.7 951.3 / 951.3
Output Total 1895 / 1895 6230 / 6610 1680 / 1680
Balance 1522.8 / 1522.8 -2852.5 / -3055.3 -728.7 / -728.7
SaO2 [A/C] 99
SaO2 100
Physical Exam
General: Comfortable
HEENT: Normocephalic
Cardiovascular: S1-S2 and Regular Rhythm
Respiratory: Clear and Non-Labored Respirations
GI: Soft and Non Distended
Neurology: Other (Unresponsive, on sedation. Overbreathing the ventilator. No gag reflex. Pupils equals/small/minimal no response to light. No withdrawal to pain. Posturing.) and Other (Posturing/rigid.)
Skin: Warm
Labs/Micro/Reports
Lab Data
07/26/24 04:17
07/26/24 12:35
Laboratory Results
07/26/24
12:34
pH 7.50 H
pCO2 37
pO2 100
HCO3 28.9 H
O2 Delivery Level
--- NOTE | 2024-07-26 13:12 | PN.CDI ---
CDI
- -
CDI:
Physician Documentation Request
Admit Date: 07/23/24 17:40
Dear Doctor Do,
Patient admitted following cardiac arrest.
07/25 Hospitalist PN: 'Vfib Cardiac arrest secondary to fentanyl/heroin overdose. Appreciate commodity lead input, continue vent management as per commodity lead'
07/25 Cruise Director PN: 'Respiratory-hypercapnic respiratory failure due to drug overdose/cardiac arrest'
Selected Entries
07/23/24
14:56 07/23/24
20:00 07/24/24
03:47
% Oxygen delivered 100 60 60
07/24/24
08:00 07/24/24
20:25
% Oxygen delivered 40 50
Clarify which of the following accurately represents the patient's respiratory status:
Acute hypercapnic respiratory failure
Acute hypoxic respiratory failure
Intubated for airway protection
Other
Additional information for Respiratory Failure:
Recognized criteria for Respiratory Failure (Source: [facility] Sep 2013)
ABGs: (1 or more) Symptoms Please indicate type if known
1. p)2 <60 or RA SPO2 <91% on RA 1. Tachypnea, SOB, dyspnea Hypoxic
2. pCO2 50 and pH <7.35 2. Use of accessory muscles Hypercapnic
3. pO2 decrease of pCO2 increase by 3. Pallor or cyanosis Hypoxic and Hypercapnic
10 mmHg from baseline if known 4. Anxiety or restlessness Unable to determine
5. Unable to speak in full sentences
Supplemental O2 of > 40% (5LPM) Intubation is not required
Use of terms such as suspected, likely, concern for, or probable (associated with a specific diagnosis that is being evaluated, monitored, or treated as if it exists) are acceptable and can be coded in the inpatient setting, when documented at the
time of discharge.
Thank you,
Sherri Brown RN, BSN
CDI Specialist
Available via [place] text
Please use your independent medical judgment in providing your response.
[2024-07-26 14:34] VITALS: BP 159/119
[2024-07-26 14:35] VITALS: BP 171/150
[2024-07-26 14:58] LABS: ALT (SGPT) 659 U/L (0-50); AST (SGOT) 380 U/L (17-59); Albumin 3.9 g/dl (3.5-5.0); Alkaline Phosphatase 102 U/L (38-126); Direct Bilirubin 0.3 mg/dl (0.0-0.4); Total Protein 6.2 g/dl (6.3-8.2)
[2024-07-26 15:00] LABS: COVID-19 Antigen Negative (Negative)
--- NOTE | 2024-07-26 15:49 | PTCARENOTE ---
Neuro status unchanged from previous shift. Remains off sedation w/ no purposeful movements - GCS of 4. Pt is tense/rigid w/ decerebrate posturing. Pt remains febrile and on cooling blanket - set to 99.5 F automatic. Sinus tach 130-150s -
lopressor given PRN. Cardene infusing at 2.5 mg/hr.
Repeat CT head done today - Findings again seen compatible with global cerebral anoxia, without significant change.
[2024-07-26] MEDS: SUBLIMAZE 100 IV (16:45)
--- NOTE | 2024-07-26 16:50 | CM ---
patient intubated,being followed by neuro-dc hermila,wean sedation as able,hct with global anoxia,prognosis poor.
--- NOTE | 2024-07-26 17:39 | W.PN.UPDATE ---
Update Note
Progress Note Update
Father agreed to gift of life donation.
Per protocol, will change back to full code.
[2024-07-26] MEDS: LOVENOX 40 MG SC (18:15)
--- NOTE | 2024-07-26 20:00 | PTCARENOTE ---
Pt unresponsive, no purposeful movement, posturing with painful stimuli, GCS-4, pupils 2/2 sluggish, see Neuro flow sheet, intubated, AC 450/22/40%/5, 26cm at the right lip. Suctioning for thick white secretions. Sinus tach 120 on monitor, SBP >160,
Cardene gtt restarted. Left radial Cely. Fentanyl gtt infusing per protocol. Cooling blanket for temp >99.5. OGT with minimal output. Hypoactive bowel sounds. Marmolejo draining yellow urine. [id number] with pillows.
--- NOTE | 2024-07-26 21:52 | EEGC.RPT ---
Continuous EEG Report
Recording
Start Date of Data Reviewed: 07/25/24
Start Time of Data Reviewed: 12:16
End Date of Data Reviewed: 07/26/24
End Time of Data Reviewed: 08:48
Type of EEG: Continuous
Done with Video Recording: Yes
Study Sequence: Initiation of Study
Report
METHODS
A 21 channel digitized electroencephalogram was performed at [facility]. The 10/20 international system of electrode placement was used. In addition to EEG, the patient was monitored for EKG. The duration of the recording was 20 hours and
31 minutes.
BACKGROUND
The background was relatively low amplitude with no clear posterior dominant rhythm. The study was extremely limited given superimposed muscle artifact; from what was visible of the underlying recording, little to no variability was noted.
PHOTIC STIMULATION
Photic stimulation using a step-lora increase in photic frequency varying from 1-31 [employer] resulted in no driving responses but no appearance of abnormal activity.
CLINICAL EVENTS
None
INTERPRETATION AND CLINICAL CORRELATION
The background was relatively low amplitude with no clear posterior dominant rhythm. The study was extremely limited given superimposed muscle artifact; from what was visible of the underlying recording, little to no variability was noted. The
study is consistent with moderate to severe anoxic injury. No clear seizures were noted.
[2024-07-26 22:18] LABS: Blood Urea Nitrogen 23 mg/dl (9-20); Calcium 9.3 mg/dl (8.4-10.2); Carbon Dioxide 28 mmol/L (22-30); Chloride 113 mmol/L (98-107); Estimated Creatinine Clearance > 125 ml/min; Glucose 113 mg/dl (70-99); Phosphorus 2.4 mg/dl (2.5-4.5); Sodium 151 mmol/L (135-145); eGFR > 60.00
--- NOTE | 2024-07-26 23:45 | PTCARENOTE ---
Assessment unchanged, titrating Cardene and Fentanyl per protocol. Potassium 3.0, 40meqs ordered. continue with Zosyn. Sodium remains 151. Urine output slowed down.
[2024-07-26] MEDS: KCL 100 IV (23:58)
[2024-07-27] MEDS: TRANDATE 10 MG IV ×3 (01:34→20:02)
[2024-07-27] MEDS: ZOSYN 50 IV ×4 (02:09→19:40)
[2024-07-27] MEDS: NSS 1000 IV (02:13)
[2024-07-27] MEDS: SUBLIMAZE 100 IV ×2 (04:49→17:47)
[2024-07-27 04:52] LABS: Hematocrit 40.8 % (39.0-52.0); Hemoglobin 14.5 g/dL (13.0-18.0); Mean Corp Hgb Conc. 35.5 g/dL (33.0-37.0); Mean Corpuscular Hgb 29.3 pg (27.0-31.0); Mean Corpuscular Volume 82.4 fL (80.0-94.0); Mean Platelet Volume 9.7 fL (7.4-10.4); Platelet Count 207 10^3/uL (130-400); Red Blood Cell Count 4.95 10^6/uL (4.70-6.10); Red Cell Dist. Width 12.4 % (11.5-14.5); White Blood Cell Count 10.7 10^3/uL (4.8-10.8)
[2024-07-27 05:16] LABS: ALT (SGPT) 465 U/L (0-50); AST (SGOT) 196 U/L (17-59); Albumin 3.4 g/dl (3.5-5.0); Alkaline Phosphatase 81 U/L (38-126); Blood Urea Nitrogen 29 mg/dl (9-20); Calcium 9.4 mg/dl (8.4-10.2); Carbon Dioxide 24 mmol/L (22-30); Chloride 116 mmol/L (98-107); Estimated Creatinine Clearance > 125 ml/min; Glucose 104 mg/dl (70-99); Magnesium 2.2 mg/dl (1.6-2.3); Phosphorus 2.1 mg/dl (2.5-4.5); Potassium 3.2 mmol/L (3.5-5.1); Sodium 152 mmol/L (135-145); Total Bilirubin 1.2 mg/dl (0.2-1.3); Total Protein 5.5 g/dl (6.3-8.2); eGFR > 60.00
[2024-07-27 06:00] VITALS: BMI 20.4
[2024-07-27] MEDS: KCL 100 IV ×3 (06:00→18:17)
[2024-07-27] MEDS: NSS (PRESERVATIVE FREE) 10 ML IV (07:32)
[2024-07-27] MEDS: PROTONIX IV 40 MG IV (07:32)
[2024-07-27] MEDS: KEPPRA 500 MG IV (07:33)
--- NOTE | 2024-07-27 08:15 | PTCARENOTE ---
Rec'd pt at 0700. Pt on Fentanyl gtts 75mcg/hr on vent. Pupils 3/sluggish, no gag or corneal reflexes noted. Overbreathes vent in mid 20's. Monitor SR. Lungs CTA, pox 99% on 40% fio2. Bite block in place. +hypo BS, abd soft/nt. Blanco to erica RONDON
drainage. Marmolejo draining darcy urine. GOL updated.
--- NOTE | 2024-07-27 08:16 | W.PN.HOSP.TC ---
Today's Communication/Plan
-
For organ donation
Assessment / Plan
Assessment / Plan
HPI: 33-year-old male past medical history of cardiac arrest from drug overdose, heroin use, cardiomyopathy, vent dependent respiratory failure, aspiration pneumonia, nephrolithiasis, leukoplakia of tongue, depression, presenting for altered mental
status. He was found unresponsive laying on the couch by his father. Per paramedics he was last awake at 9 AM this morning and EMS was dispatched at 2:07 PM and police found him apneic and pulseless. Patient was given 4 mg of Narcan and CPR was
started. Paramedics arrived and gave additional 4 mg Narcan and was found to be in ventricular fibrillation. He was shocked once with sikh of sinus rhythm and pulse. He was intubated prior to arrival.
Patient has not used drugs in 2 years. Father denies any suicidal intent recently. Patient does use medical marijuana. He does not drink alcohol and father is not aware of any other drug use.
#Acute hypercapnic respiratory failure
#Ventricular fibrillation cardiac arrest secondary to fentanyl/heroin overdose
Appreciate tig welder input, continue vent management as per tig welder
EEG shows mild diffuse slowing, neurology consulted
Head CT findings consistent with global anoxia, s/p Keppra for jerking
Father informed of poor prognosis, pt unlikely to have neurologic recovery
Not consistent with brain
Wean sedation as possible, plan for organ donation
#Hypernatremia
Due to hypertonic saline
Free water through tube
#Hypokalemia
#Hypophosphatemia
Repleted by IV
#Cardiogenic shock
Status post Levophed
#Leukocytosis/fever
Continue Zosyn
#Tachycardia
#Hypertension
S/p Cardene drip
IV metoprolol and labetalol as needed
#Coffee ground emesis
Continue PPI
#Metabolic acidosis secondary to cardiac arrest
#Acute kidney injury
Resolved with IV fluids
#Shock liver
#Transaminitis
Supportive care, trend LFTs
History of fentanyl, benzodiazepine, cocaine use
-As per prior UDS
History of cardiomyopathy
-LV ejection fraction is 55-60%
Nephrolithiasis
History of leukoplakia of tongue
Depression
DVT prophylaxis�subcu heparin
Full code
Updated father at bedside 07/25, 07/26
Total time spent to see the patient on the floor, examine the patient, review data and lab results, discuss treatment plan with patient, nursing staff around 50 minutes.
Physical Exam
General: Intubated, appears acutely ill
HEENT: Normocephalic, Atraumatic
Respiratory: Clear to Auscultation bilaterally
Cardiac: Normal S1/S2, Regular Rate and Rhythm
GI: Soft, Nontender, Nondistended, Normal Bowel Sounds
Extremities: No Clubbing, Cyanosis
Anticipated Discharge: > 48 hours
Subjective/Interval History
-
Date of Service: July 26, 2024
Patient intubated.
Objective Data
-
Labs:
Laboratory Results
07/26/24 07/26/24 07/26/24
04:17 12:34 12:35
HCO3 28.9 H
Sodium 151 H
Total Bilirubin
AST
ALT 792 H*
Alkaline Phosphatase
07/26/24
14:20
HCO3
Sodium
Total Bilirubin 1.0
AST 380 H
ALT 659 H*
Alkaline Phosphatase 102
Vital Signs:
Vital Signs
Temp Pulse Resp BP Pulse Ox
100.4 F H 140 34 159/93 95
07/26/24 15:00 07/26/24 16:07 07/26/24 10:00 07/26/24 16:07 07/26/24 16:39
I&O
07/25/24 07/26/2424
06:59 06:59 06:59
Intake Total 3417.8 / 3417.8 3377.5 / 3554.7 1188.8 / 1188.8
Output Total 1895 / 1895 6230 / 6610 1680 / 1680
Balance 1522.8 / 1522.8 -2852.5 / -3055.3 -491.2 / -491.2
--- NOTE | 2024-07-27 09:07 | W.PN.INTV ---
Today's Communication / Plan
Recommendations
Will change IV fluids
Replete potassium
Free water-NG tube
Laboratories at noon
Check ABG
Will adjust ventilator as necessary
Continue antibiotics for now
Continue labetalol/metoprolol as needed
Nicardipine if necessary
Will attempt to discontinue fentanyl drip
Assessment
-
33-year-old man with history of drug abuse. Found unresponsive by his father. Last time seen awake was 9 AM. Police arrived and provided Narcan. Subsequently EMS provided more Narcan and patient apparently was on ventricular fibrillation x 1
shock provided with regain of spontaneous circulation. Intubated on the field. ICU consulted 07/23/2024 for further care.
Hypercapnic respiratory failure due to drug overdose-last time seen was 9 AM. Found at 2 PM.
Subsequent ventricular fibrillation arrest-status post defibrillation x 1 with rapid regain of circulation.
Metabolic/respiratory acidosis: pH 7.18/40/301/14
Increased lactic acid postcardiac arrest.
Rule out anoxic brain injury: So far CT negative for bleeding or signs of ischemia or edema.
Possible aspiration event: Right lower lobe atelectasis versus pneumonia on chest x-ray. Reviewed.
Conditions present prior admission:
History of asthma
History of cardiomyopathy, EF 35%, resolved 2020-recovered LVEF in 2022 back to normal.
History of nephrolithiasis
History of Cardiac arrest, asystole, December 2020.
EPI x 5, CPR x 35 min (per EMS)
History of cardiac/respiratory arrest 02/17/2023.
History of Acute renal failure, creatinine 2.8
History of incarceration for 4-1/2 years
Former tobacco history
Assessment and plan:
Critically ill: Intubated on mechanical ventilation.
Respiratory-hypercapnic respiratory failure due to drug overdose/cardiac arrest, PEA-briefly on ventricular tachycardia per EMS. Received 1 shock with rapid conversion and regain of spontaneous circulation.
Toxicology: Positive for amphetamines/cocaine fentanyl and fentanyl a positive.
Status post CPR: Regained spontaneous circulation after one shock. No further arrest. Has remained relatively hemodynamically stable without arrhythmias.
Likely primarily due to respiratory arrest
No indication for TTM at this time, discussed with primary team in the emergency room on admission. Both in agreement.
-
No meaningful neurological recovery as of 07/27/2024
Intermittently febrile, hypertensive, tachycardic, now hypernatremic, polyuric.
Family has decided to stop aggressive care, they agree to organ transplantation.
Overbreathing the ventilator, requiring fentanyl due to ventilator dyssynchrony. Not consistent with brain 07/27/2024
-
Continue with volume-cycled ventilation-overbreathing the ventilator.
Respiratory mechanics acceptable.
ABG 07/26/2024: 7.50/37/100. Patient has been tachypneic, likely centrally driven.
Repeat ABG today
Will adjust mechanical ventilation as able.
Sedation as necessary., For ventilation dyssynchrony
No plans for spontaneous breathing trial
-
Neurological examination has not changed. Remains comatose-overbreathing the ventilator.
Recheck
Posturing
Biting the ET tube.
Continue sedation as needed.
Haldol as needed for shivering.
Fever control with Tylenol as well as Toradol if necessary. Also nonpharmacological
Currently on a fentanyl drip, wean off as able.
-
CT head 07/25/2024: consistent with global anoxia. No evidence for bleeding.
CT chest 07/26/2024: Ongoing signs of progressive global anoxic brain injury. Severe
EEG monitoring per neurology.
Keppra has been discontinued
I have discussed the case with primary team and neurology.
I have updated his father at the bedside multiple times.
Prognosis for recovery are poor.
Hypertonic saline discontinued
-
Will use labetalol/metoprolol as needed for heart rate and blood pressure control-hopefully to systolic pressure 140-160
Nicardipine drip as needed
-
Lactic acid has cleared
Renal function is normal
Nongap metabolic acidosis likely due to normal saline
Given hypernatremia will switch to D5
Will place NG tube to be free water.
Suspect DI
May need to provide DDAVP if hypernatremia continues to worsen, repeat labs at noon-urinary output tapering down
Off vasopressors.
Marmolejo in place, monitor urinary output
-
Hypokalemia being repleted
Repeat labs later
Magnesium is 2.2
-
So far no evidence for acute lung injury.
Continue Zosyn overnight due to fevers complete 5 days
Possible aspiration event
Avoid hypotension
-
Morning coffee ground emesis on NG tube
Follow HB
on PPI
-
DVT prophylaxis: Lovenox for DVT prophylaxis.
GI prophylaxis: Protonix
I personally discussed with father in detail and explained above 07/23/2024, 07/24/2024 and 07/25/2024,07/26/2024. He states that he is familiar with this clinical scenario. Will continue hemodynamic support. Prognosis is poor for meaningful
recovery.
Discussed the case with neurology and primary team. Chances of recovery are minimal, significant brain edema. Appears family would not want to continue with resuscitation.
Continue support for now. They have decided for organ donation in the next 24 hours if patient does not progress to brain .
Critical care statement: A total of 35, minutes of critical care time was provided for this patient today. This includes management of unstable vital signs, evaluation of the patient at bedside, reviewing the patient's pertinent medical records
including ventilator settings, arterial blood gases, radiographs, microbiology, laboratory evaluations and discussion with primary team, critical care nursing, and respiratory therapy.

Reviewed images.
-
-
Echocardiogram 02/17/2023:
Reviewed, showed normal ejection fraction. Normal left atrial size. No mitral rotation. No aortic regurgitation.
Chest x-ray: Reviewed relatively clear. Possible right lower lobe abnormality.
Subjective Dataa
Subjective Data
Date of Service:
Date of Service: July 27, 2024
Chief Complaint: Night Nurse Follow Up (Drug overdose/hypercapnic respiratory failure requiring ventilation)
Subjective:
Remains critically ill, unresponsive. On mechanical ventilation
No meaningful neurological recovery
Review of Systems
General: Unobtainable - Pat Unresp
Objective Data
Data Reviewed
Vital Signs / I&O / Oxygen:
Vital Signs
Temp Pulse Resp BP Pulse Ox
97.9 F 99 25 181/103 100
07/27/24 07:42 07/27/24 07:00 07/27/24 07:00 07/27/24 01:34 07/27/24 07:27
Intake and Output
07/26/24 07/27/24 07/28/24
06:59 06:59 06:59
Intake Total 3377.5 / 3554.7 2941.3 / 2941.3
Output Total 6230 / 6610 4180 / 4180
Balance -2852.5 / -3055.3 -1238.7 / -1238.7
SaO2 [A/C] 100
SaO2 100
Physical Exam
General: Comfortable
HEENT: Normocephalic
Cardiovascular: S1-S2 and Regular Rhythm
Respiratory: Clear and Non-Labored Respirations
GI: Soft and Non Distended
Neurology: Other (Unresponsive, on sedation. Overbreathing the ventilator. No gag reflex. Pupils equals/small/minimal no response to light. No withdrawal to pain. Posturing.) and Other (Posturing/rigid.)
Skin: Warm
Labs/Micro/Reports
Lab Data
07/27/24 04:25
08/31/24 04:25
Laboratory Results
07/26/24
12:34
pH 7.50 H
pCO2 37
pO2 100
HCO3 28.9 H
O2 Delivery Level
[2024-07-27 09:42] LABS: B.E. 4.5 mmol/L; HCO3 24.9 mmol/L (21-28); O2 Saturation % 99.3 % (94-98); PCO2 26 mmHg (35-48); PO2 126 mmHg (83-108); pH 7.59 (7.35-7.45)
[2024-07-27] MEDS: D5W 1000 IV ×2 (10:19→20:00)
--- NOTE | 2024-07-27 11:43 | PTCARENOTE ---
SBP 180's, PRN Labetalol given, SBP down to 140's at this time. Pupils 4, sluggish reaction. Continues to overbreathe vent, RR in mid 20's. Moderate amt thick creamy oral secretions. Assessment otherwise unchanged.
[2024-07-27 13:10] LABS: Blood Urea Nitrogen 36 mg/dl (9-20); Calcium 9.2 mg/dl (8.4-10.2); Carbon Dioxide 25 mmol/L (22-30); Chloride 118 mmol/L (98-107); Estimated Creatinine Clearance 121 ml/min; Glucose 133 mg/dl (70-99); Magnesium 2.2 mg/dl (1.6-2.3); Potassium 3.2 mmol/L (3.5-5.1); Sodium 153 mmol/L (135-145); eGFR > 60.00
[2024-07-27] MEDS: SUBLIMAZE 50 MCG IV ×2 (16:56→23:57)
[2024-07-27] MEDS: LOVENOX 40 MG SC (17:06)
--- NOTE | 2024-07-27 17:25 | PTCARENOTE ---
1400-Dr. Hawley notified of repeat lab results, 40Meq KCL IVPB ordered x2 doses. ~1525-SBP low 200's/110's, pt not due for PRN Labetalol at that time, Cardene gtts started at 2.5mg/hr, within 30 min SBP down to 110's, Cardene gtts turned off. SBP
130-140's. ~1700-Pt with vent dyssynchrony and stacking breaths, PRN Fentanyl given and gtts increased.
--- NOTE | 2024-07-27 20:00 | PTCARENOTE ---
Received pt intubated, sedated on fentanyl gtt. GCS = 4. No w/d to pain. Pupils sluggish, 4mm B/L. SR/ST on tele, HR 80-100s. L radial A line zeroed and transduced. After care, SBP 180-200. HR 110s. IV labetalol given with good effect. Temp 99.6
rectal. + pulses. #7.5 ETT @ 26 R lip. Tolerating A/C 22/450/+5/40%. Overbreathing vent. Not to move ETT per orders. Bite block in. Mouth care provided. Suctioned white, blood tinged sputum orally. Lungs coarse and diminished. Marmolejo cath draining
yellow urine. Hypoactive bowel sounds. OG tube flushed per orders. R PICC with fentanyl @100mcg and D5W @100ml/hr. Turning q2.
--- NOTE | 2024-07-28 00:21 | PTCARENOTE ---
Pt dyssynchronous with vent. RR 30, stacking breaths at times. Fentanyl bolus given and fentanyl gtt increased to 125mcg. Cardene gtt was on briefly for SBP 180s sustained (labetalol was not given yet)- now off, SBP 120s-130s. Neuro status
unchanged.
[2024-07-28 00:23] LABS: Blood Urea Nitrogen 34 mg/dl (9-20); Calcium 9.6 mg/dl (8.4-10.2); Carbon Dioxide 24 mmol/L (22-30); Chloride 117 mmol/L (98-107); Estimated Creatinine Clearance > 125 ml/min; Glucose 136 mg/dl (70-99); Magnesium 2.3 mg/dl (1.6-2.3); Sodium 152 mmol/L (135-145); eGFR > 60.00
[2024-07-28] MEDS: TRANDATE 10 MG IV (02:11)
[2024-07-28] MEDS: ZOSYN 50 IV ×4 (02:14→20:19)
[2024-07-28] MEDS: SUBLIMAZE 50 MCG IV ×3 (02:40→15:37)
[2024-07-28] MEDS: SUBLIMAZE 100 IV ×4 (03:03→21:56)
--- NOTE | 2024-07-28 04:23 | PTCARENOTE ---
Pt been having more frequent hypertensive episodes with BP 200s/100s. On and off low dose cardene through the night. Gets tachypneic and dyssynchronous with vent during episodes. See MAR for fentanyl boluses given. Bathed with CHG. Neuro status
unchanged.
GOL rep updated.
[2024-07-28 04:28] LABS: B.E. 2.6 mmol/L; HCO3 23.6 mmol/L (21-28); O2 Saturation % 98.6 % (94-98); PCO2 27 mmHg (35-48); PO2 91 mmHg (83-108); pH 7.55 (7.35-7.45)
[2024-07-28 05:00] LABS: Blood Urea Nitrogen 27 mg/dl (9-20); Calcium 8.8 mg/dl (8.4-10.2); Carbon Dioxide 22 mmol/L (22-30); Chloride 118 mmol/L (98-107); Estimated Creatinine Clearance > 125 ml/min; Glucose 151 mg/dl (70-99); Potassium 3.4 mmol/L (3.5-5.1); Sodium 150 mmol/L (135-145); eGFR > 60.00
[2024-07-28 05:19] VITALS: BMI 20.7
[2024-07-28] MEDS: D5W 1000 IV (05:21)
[2024-07-28] MEDS: KCL 100 IV (05:24)
[2024-07-28] MEDS: PROTONIX IV 40 MG IV (07:34)
[2024-07-28] MEDS: NSS (PRESERVATIVE FREE) 10 ML IV (07:34)
[2024-07-28] MEDS: LOPRESSOR 5 MG IV (07:51)
--- NOTE | 2024-07-28 08:03 | PTCARENOTE ---
Rec'd pt at 0700. Pt diaphoretic, stacking breaths and dyssynchronous on vent. Vent alarming for high pressuring. ETT sx for thick white/moore secretions. Pt oral pharyngeal suctioned for large amts thick moore/yellow secretions. Vent no longer high
pressuring but pt continued to stack breaths and remain dyssynchronous on vent. 0730-50mcg Fentanyl bolus given and Fentanyl gtts increased to 150mcg/hr, no results noted. 0750-Pt's HR 140's/SBP 160's, 5 mg IV PRN Lopressor given. SBP down to 120's,
Cardene gtts reduced to 2.5mg/hr. HR down to 90-100's, pt now synchronous on vent and no longer stacking breaths. Lungs CTA, pox 96-98% on 40% fio2. +hypo BS, abd soft/nt. OGT flushed as per orders. Marmolejo draining darcy urine.
--- NOTE | 2024-07-28 09:51 | W.PN.INTV ---
Today's Communication / Plan
Recommendations
Update laboratories
Update ABG
Update chest x-ray
Nicardipine drip as necessary
Fentanyl drip for ventilator synchrony
Eventual bronchoscopy in preparation for organ donation
Quarter normal saline
Follow hyponatremia
1 dose of DDAVP
Marmolejo urinary output
Continue antibiotics
Assessment
-
33-year-old man with history of drug abuse. Found unresponsive by his father. Last time seen awake was 9 AM. Police arrived and provided Narcan. Subsequently EMS provided more Narcan and patient apparently was on ventricular fibrillation x 1
shock provided with regain of spontaneous circulation. Intubated on the field. ICU consulted 07/23/2024 for further care.
Hypercapnic respiratory failure due to drug overdose-last time seen was 9 AM. Found at 2 PM.
Subsequent ventricular fibrillation arrest-status post defibrillation x 1 with rapid regain of circulation.
Metabolic/respiratory acidosis: pH 7.18/40/301/14
Increased lactic acid postcardiac arrest.
Rule out anoxic brain injury: So far CT negative for bleeding or signs of ischemia or edema.
Possible aspiration event: Right lower lobe atelectasis versus pneumonia on chest x-ray. Reviewed.
Conditions present prior admission:
History of asthma
History of cardiomyopathy, EF 35%, resolved 2020-recovered LVEF in 2022 back to normal.
History of nephrolithiasis
History of Cardiac arrest, asystole, December 2020.
EPI x 5, CPR x 35 min (per EMS)
History of cardiac/respiratory arrest 02/17/2023.
History of Acute renal failure, creatinine 2.8
History of incarceration for 4-1/2 years
Former tobacco history
Assessment and plan:
Critically ill: Intubated on mechanical ventilation.
Respiratory-hypercapnic respiratory failure due to drug overdose/cardiac arrest, PEA-briefly on ventricular tachycardia per EMS. Received 1 shock with rapid conversion and regain of spontaneous circulation.
Toxicology: Positive for amphetamines/cocaine fentanyl and fentanyl a positive.
Status post CPR: Regained spontaneous circulation after one shock. No further arrest. Has remained relatively hemodynamically stable without arrhythmias.
Likely primarily due to respiratory arrest
No indication for TTM , discussed with primary team in the emergency room on admission. Both in agreement.
-
As of 07/28/2024:
No meaningful neurological recovery.
Intermittently hypertensive, tachycardic, now hypernatremic, polyuric.
Not febrile.
Family has decided to stop aggressive care, they agree to organ transplantation after cardiac . Planning to harvest on 07/29/2024.
Overbreathing the ventilator, requiring fentanyl due to ventilator dyssynchrony. Not consistent with brain 07/28/2024
-
Continue with volume-cycled ventilation-overbreathing the ventilator.
Respiratory mechanics acceptable.
Patient overbreathing the ventilator.
ABG 07/26/2024: 7.50/37/100. Patient has been tachypneic, likely centrally driven.
ABG continues to demonstrate respiratory alkalosis.
PaO2 ---91 mm of mercury on 40% FiO2
ET tube without excessive secretions.
Sedation as necessary., For ventilation dyssynchrony-currently requiring fentanyl drip due to overbreathing the ventilator and ventilator dyssynchrony.
No plans for spontaneous breathing trial
Bronchoscopy per protocol of life will be performed later today.
-
Neurological examination has not changed. Remains comatose-overbreathing the ventilator.
Posturing
Biting the ET tube.
Sedation as above
Fever control with Tylenol as needed. Occasional Toradol if necessary.
-
CT head 07/25/2024: consistent with global anoxia. No evidence for bleeding.
CT chest 07/26/2024: Ongoing signs of progressive global anoxic brain injury. Severe
EEG monitoring per neurology.
Keppra has been discontinued
Neurology has signed off.
I have updated his father at the bedside multiple times.
Hypertonic saline discontinued
-
W continue labetalol/metoprolol as needed for heart rate and blood pressure control-hopefully to systolic pressure 140-160
Nicardipine drip as needed currently on low-dose this morning 07/28/2024. Attempt to wean off.
-
Lactic acid has cleared
Renal function is normal
[place]ong[place] metabolic acidosis likely due to normal saline
Given hypernatremia switch to cortisone saline as patient is hyperglycemic.
Continue NG tube - free water.
Possible beginning stages of DI.
Unable to use vasopressin to hypertension
Will give 1 dose of DDAVP 0.25
Follow electrolyte
Off vasopressors.
Marmolejo in place, monitor urinary output
-
Discussed with [facility] [employer] life route sales representative.
Laboratories will be updated
Bronchoscopy will be performed later
ABGs as necessary per protocol
Plan for organ harvesting 07/29/2024.
-
So far no evidence for acute lung injury.
Update chest x-ray
Continue Zosyn overnight due to fevers complete 5 days
Possible aspiration event right lower lobe normality. Mild.
-
Morning coffee ground emesis on NG tube
Follow HB-CBC today.
on PPI
-
DVT prophylaxis: Lovenox for DVT prophylaxis.
GI prophylaxis: Protonix
I personally discussed with father in detail and explained above 07/23/2024, 07/24/2024 and 07/25/2024,07/26/2024. He states that he is familiar with this clinical scenario. Will continue hemodynamic support. Prognosis is poor for meaningful
recovery.
Discussed the case with neurology and primary team. Chances of recovery are minimal, significant brain edema. Appears family would not want to continue with resuscitation.
Continue support for now. They have decided for organ donation in the next 24 hours if patient does not progress to brain .
For organ donation after cardiac on 07/29/2024.
Critical care statement: A total of 60, minutes of critical care time was provided for this patient today. This includes management of unstable vital signs, evaluation of the patient at bedside, reviewing the patient's pertinent medical records
including ventilator settings, arterial blood gases, radiographs, microbiology, laboratory evaluations and discussion with primary team, critical care nursing, and respiratory therapy.

Reviewed images.
-
-
Echocardiogram 02/17/2023:
Reviewed, showed normal ejection fraction. Normal left atrial size. No mitral rotation. No aortic regurgitation.
Chest x-ray: Reviewed relatively clear. Possible right lower lobe abnormality.
Subjective Dataa
Subjective Data
Date of Service:
Date of Service: July 28, 2024
Chief Complaint: Media Supervisor Follow Up (Drug overdose/hypercapnic respiratory failure requiring ventilation)
Subjective:
Unresponsive
(The ventilator
No meaningful neurological recovery
Review of Systems
General: Unobtainable - Pat Unresp
Objective Data
Data Reviewed
Vital Signs / I&O / Oxygen:
Vital Signs
Temp Pulse Resp BP Pulse Ox
99.1 F 94 22 163/96 98
07/28/24 08:01 07/28/24 08:00 07/28/24 08:00 07/28/24 07:51 07/28/24 09:35
Intake and Output
07/27/24 07/28/24 07/29/24
06:59 06:59 06:59
Intake Total 2941.3 / 3073.8 3280.0 / 3442.5 547.5 / 547.5
Output Total 4180 / 4255 1864 300 / 300
Balance -1238.7 / -1181.2 1415.0 / 1427.5 247.5 / 247.5
SaO2 [A/C] 96
SaO2 98
Physical Exam
General: Comfortable
HEENT: Normocephalic
Cardiovascular: S1-S2 and Regular Rhythm
Respiratory: Clear, Non-Labored Respirations and ET Tube (No significant secretion)
GI: Soft and Non Distended
Neurology: Other (Unresponsive, on sedation. Overbreathing the ventilator. No gag reflex. Pupils equals/small/minimal no response to light. No withdrawal to pain. Posturing.) and Other (Posturing/rigid.)
Skin: Warm
Labs/Micro/Reports
Lab Data
07/27/24 04:25
07/28/24 04:21
Laboratory Results
07/28/24
04:21
pH 7.55 H
pCO2 27 L
pO2 91
HCO3 23.6
O2 Delivery Level
[2024-07-28] MEDS: DDAVP 50.0625 MCG IV (10:26)
[2024-07-28] MEDS: SODIUM CHLORIDE 1009.625 MEQ IV (10:26)
[2024-07-28 10:37] LABS: ALT (SGPT) 335 U/L (0-50); AST (SGOT) 128 U/L (17-59); Albumin 3.4 g/dl (3.5-5.0); Alkaline Phosphatase 73 U/L (38-126); Direct Bilirubin 0.3 mg/dl (0.0-0.4); Total Bilirubin 0.9 mg/dl (0.2-1.3); Total Protein 5.5 g/dl (6.3-8.2)
[2024-07-28 10:43] LABS: % Basophils 0.2 % (0-2); % Lymphocytes 5.6 % (20.5-51.1); % Monocytes 6.5 % (1.7-9.3); % Neutrophils 86.7 % (42.2-75.2); Absolute Immature Granulocytes 0.1 10^3/uL (0-0.05); Absolute Lymphocytes 0.8 10^3/uL (1.2-3.4); Absolute Monocytes 0.9 10^3/uL (0.1-0.6); Absolute Neutrophils 11.7 10^3/uL (1.4-6.5); Hematocrit 45.9 % (39.0-52.0); Mean Corp Hgb Conc. 34.9 g/dL (33.0-37.0); Mean Corpuscular Hgb 29.9 pg (27.0-31.0); Mean Corpuscular Volume 85.8 fL (80.0-94.0); Mean Platelet Volume 9.8 fL (7.4-10.4); Nucleated Red Blood Cells % 0 % (-); Platelet Count 188 10^3/uL (130-400); Red Blood Cell Count 5.35 10^6/uL (4.70-6.10); Red Cell Dist. Width 12.6 % (11.5-14.5); White Blood Cell Count 13.5 10^3/uL (4.8-10.8)
[2024-07-28 10:47] LABS: INR 1.12; PT 14.3 Sec (11.4-14.6)
[2024-07-28 10:48] LABS: APTT 25.6 Sec (23.4-35.0); Amylase 179 U/L (30-110); GGTP 38 U/L (15-73); LDH 999 U/L (120-246); Lipase 483 U/L (23-300); Total CK 473 U/L (55-170)
[2024-07-28 10:56] LABS: Urine Albumin Negative (Neg - Trace); Urine Bilirubin Negative (Negative); Urine Character Very Cloudy (Clear); Urine Color Yellow; Urine Glucose Negative (Negative); Urine Ketone Negative (Negative); Urine Leukocyte 2+ (Negative); Urine Nitrite Negative (Negative); Urine Occult Blood Negative (Negative); Urine Urobilinogen Negative (Neg - 1+)
[2024-07-28] MEDS: 0.45%NACL 1000 IV ×2 (11:16→20:19)
[2024-07-28 11:22] LABS: CKMB 2.8 ng/ml (0.0-2.4)
[2024-07-28 12:46] LABS: Urine Mucus Few; Urine Squamous Cell 0-2 /LPF (Few)
--- NOTE | 2024-07-28 12:46 | PTCARENOTE ---
~[address] scan. CHG bath on arrival back to ICU. Read leaking overnight and throughout shift. Balloon assessed this morning to assure correct fill, pad again saturated with urine after CT scan. Read removed and new read placed without
difficulty.
[2024-07-28 12:48] LABS: Urine Red Blood Cell 0-2 /HPF (0-2)
[2024-07-28 12:49] LABS: Urine Yeast Many (Negative)
[2024-07-28 13:06] LABS: Blood Urea Nitrogen 25 mg/dl (9-20); Calcium 9.4 mg/dl (8.4-10.2); Carbon Dioxide 24 mmol/L (22-30); Chloride 115 mmol/L (98-107); Estimated Creatinine Clearance > 125 ml/min; Glucose 158 mg/dl (70-99); Sodium 150 mmol/L (135-145); eGFR > 60.00
--- NOTE | 2024-07-28 13:31 | ITS.CL.CATH ---
Casting House Worker - Catheterization
Cardiac Catheterization
Procedure Report:
CARDIAC CATHETERIZATION REPORT
Date of Procedure: 07/28/2024
Referring: [facility]
INDICATION: brain , evaluation for organ donation candidacy
PROCEDURES:
1. Left heart catheterization
2. Coronary angiography
ACCESS: 6 Romanian right femoral artery
CATHETERS:
1. 6 Romanian JL4
2. 6 Romanian JR4
HEMODYNAMIC DATA
LV 126/9 (EDP 15) mmHg
AO 110/85 (mean 94) mmHg
CORONARY ANGIOGRAPHY
Dominance: right
LM: normal without disease.
LAD: large vessel giving rise to three small caliber diagonal branches and wrapping around the apex. There is no coronary artery disease.
LCx: large vessel giving rise to a large OM1, moderate caliber OM2, moderate caliber OM3. There is no coronary artery disease.
RCA: large vessel giving rise to the RPDA. There is no coronary artery disease.
RADIATION DOCUMENTATION:
Radiation (mGy): 139.29
DAP (cm2.Gy): 11.14
Fluoroscopy time (minutes): 2.0
CONCLUSIONS
1. Normal coronary arteries in a right dominant system.
2. Mildly elevated LV filling pressure and no significant gradient on pullback across the aortic valve.
Signed: Atif Glover MD, PhD
--- NOTE | 2024-07-28 13:39 | PTCARENOTE ---
~1250 SBP 190's/110's, Cardene increased to 5mg/hr, SBP down to 140's. ECHO done at bedside. Pt to senior cytogenetics laboratory director at approx 1335.
--- NOTE | 2024-07-28 14:51 | W.PN.HOSP.TC ---
Today's Communication/Plan
-
Protocol for organ donation
Assessment / Plan
Assessment / Plan
HPI: 33-year-old male past medical history of cardiac arrest from drug overdose, heroin use, cardiomyopathy, vent dependent respiratory failure, aspiration pneumonia, nephrolithiasis, leukoplakia of tongue, depression, presenting for altered mental
status. He was found unresponsive laying on the couch by his father. Per paramedics he was last awake at 9 AM this morning and EMS was dispatched at 2:07 PM and police found him apneic and pulseless. Patient was given 4 mg of Narcan and CPR was
started. Paramedics arrived and gave additional 4 mg Narcan and was found to be in ventricular fibrillation. He was shocked once with christianity of sinus rhythm and pulse. He was intubated prior to arrival.
Patient has not used drugs in 2 years. Father denies any suicidal intent recently. Patient does use medical marijuana. He does not drink alcohol and father is not aware of any other drug use.
#Acute hypercapnic respiratory failure
#Ventricular fibrillation cardiac arrest secondary to fentanyl/heroin overdose
Appreciate copywriter input, continue vent management as per copywriter
EEG shows mild diffuse slowing, neurology consulted
Head CT findings consistent with global anoxia, s/p Keppra for jerking
Father informed of poor prognosis, pt unlikely to have neurologic recovery
Not consistent with brain
Plan for organ donation
Protocol for organ donation -cardiac catheterization, bronchoscopy
#Hypernatremia
Due to hypertonic saline
Hypotonic IVFs, free water through tube
DDAVP per copywriter
#Hypokalemia
#Hypophosphatemia
Repleted by IV, resolved
#Cardiogenic shock
Status post Levophed
#Leukocytosis/fever
Continue Zosyn
#Tachycardia
#Hypertension
Continue Cardene drip
IV metoprolol and labetalol as needed
#Coffee ground emesis
Continue PPI
#Metabolic acidosis secondary to cardiac arrest
#Acute kidney injury
Resolved with IV fluids
#Shock liver
#Transaminitis
Supportive care, trend LFTs
History of fentanyl, benzodiazepine, cocaine use
-As per prior UDS
History of cardiomyopathy
-LV ejection fraction is 55-60%
Nephrolithiasis
History of leukoplakia of tongue
Depression
DVT prophylaxis�subcu heparin
Full code
Updated father at bedside 07/25, 07/26
Total time spent to see the patient on the floor, examine the patient, review data and lab results, discuss treatment plan with patient, nursing staff around 40 minutes.
Physical Exam
General: Intubated, appears acutely ill
HEENT: Normocephalic, Atraumatic
Respiratory: Clear to Auscultation bilaterally
Cardiac: Normal S1/S2, Regular Rate and Rhythm
GI: Soft, Nontender, Nondistended, Normal Bowel Sounds
Neuro: Nonresponsive
Anticipated Discharge: Within 24 hours
Subjective/Interval History
-
Date of Service: July 28, 2024
Patient intubated and unresponsive. No fever.
Objective Data
-
Labs:
Laboratory Results
07/28/24 07/28/24 07/28/24
04:21 09:52 10:23
WBC 13.5 H
Hgb 16.0
Hct 45.9
Plt Count 188
PT 14.3
INR 1.12
APTT 25.6
HCO3 23.6
Sodium 150 H Cancelled
Potassium 3.4 L Cancelled
Chloride 118 H Cancelled
Carbon Dioxide 22 Cancelled
BUN 27 H Cancelled
Creatinine 0.6 L Cancelled
Glucose 151 H Cancelled
Calcium 8.8 Cancelled
Total Bilirubin 0.9 Cancelled
AST 128 H Cancelled
ALT 335 H Cancelled
Alkaline Phosphatase 73 Cancelled
07/28/24
12:37
WBC
Hgb
Hct
Plt Count
PT
INR
APTT
HCO3
Sodium 150 H
Potassium 4.0
Chloride 115 H
Carbon Dioxide 24
BUN 25 H
Creatinine 0.6 L
Glucose 158 H
Calcium 9.4
Total Bilirubin
AST
ALT
Alkaline Phosphatase
Vital Signs:
Vital Signs
Temp Pulse Resp BP Pulse Ox
98.2 F 108 22 163/96 98
07/28/24 11:33 07/28/24 13:30 07/28/24 13:30 07/28/24 07:51 07/28/24 13:30
I&O
07/27/24 07/28/24 07/29/24
06:59 06:59 06:59
Intake Total 2941.3 / 3073.8 3280.0 / 3442.5 1242.5 / 1242.5
Output Total 4180 / 4255 1864 1105 / 1105
Balance -1238.7 / -1181.2 1415.0 / 1427.5 137.5 / 137.5
[2024-07-28] MEDS: CARDENE 200 IV (14:56)
[2024-07-28 15:10] LABS: B.E. 1.6 mmol/L; HCO3 24.7 mmol/L (21-28); O2 Saturation % 99.3 % (94-98); PCO2 34 mmHg (35-48); PO2 120 mmHg (83-108); pH 7.47 (7.35-7.45)
[2024-07-28 15:38] LABS: B.E. 0 mmol/L; HCO3 25.4 mmol/L (21-28); PCO2 43 mmHg (35-48); PO2 394 mmHg (83-108); pH 7.38 (7.35-7.45)
--- NOTE | 2024-07-28 15:45 | W.PN.UPDATE ---
Update Note
Progress Note Update
Procedure note.
Procedure: Bronchoscopy.
Indication evaluation prior organ donor.
Consent obtained from his father 07/28/2024.
-
Patient currently on a fentanyl drip. Additional bolus of fentanyl was given for sedation as the patient had increased work of breathing.
Portable bronchoscope was introduced through the ET tube. ET tube had moderate amounts of whitish secretions easily clear.
Dona was sharp. Erythematous.
ET tube was advanced to the left lung. All left lung segments were clear of secretions, anatomy was normal. No endobronchial lesions.
Right lung: Right upper lobe clear of secretions. No endobronchial mass. Normal anatomy.
Right middle lobe: Clears of secretions. Normal anatomy. No endobronchial mass.
Right lower lobe: Superior segment clear. There are 3 segments of the right lower lobe demonstrated white thick secretion. Moderate amount. Easily cleared without washing. After aspiration of the secretion, 3 segments were not well-visualized.
Erythema was noted. No endobronchial masses.
Patient tolerated procedure well.
No immediate complications.
[2024-07-28 16:31] LABS: % Basophils 0.2 % (0-2); % Immature Granulocytes 1.1 % (0-0.5); % Lymphocytes 4.3 % (20.5-51.1); % Monocytes 5.8 % (1.7-9.3); % Neutrophils 88.6 % (42.2-75.2); Absolute Immature Granulocytes 0.2 10^3/uL (0-0.05); Absolute Lymphocytes 0.6 10^3/uL (1.2-3.4); Absolute Monocytes 0.9 10^3/uL (0.1-0.6); Absolute Neutrophils 13.2 10^3/uL (1.4-6.5); Hematocrit 44.4 % (39.0-52.0); Hemoglobin 15.7 g/dL (13.0-18.0); Mean Corp Hgb Conc. 35.4 g/dL (33.0-37.0); Mean Corpuscular Hgb 29.7 pg (27.0-31.0); Mean Corpuscular Volume 83.9 fL (80.0-94.0); Mean Platelet Volume 9.4 fL (7.4-10.4); Nucleated Red Blood Cells % 0 % (-); Platelet Count 197 10^3/uL (130-400); Red Blood Cell Count 5.29 10^6/uL (4.70-6.10); Red Cell Dist. Width 12.6 % (11.5-14.5); White Blood Cell Count 14.9 10^3/uL (4.8-10.8)
--- NOTE | 2024-07-28 16:35 | PTCARENOTE ---
~1430 pt back from label fuser tender, sheath in place to right groin, transduced to monitor and zeroed. O2 challenge completed at bedside per GOL from 1576-8205. Pt stacking breaths and dyssynchronous on vent. PRN Fentanyl given and gtts increased. Bronch
performed at bedside by Dr. Hawley at 1545. Labs drawn and sent per GOL orders.
[2024-07-28 16:43] LABS: APTT 23.9 Sec (23.4-35.0); INR 1.16; PT 14.6 Sec (11.4-14.6)
[2024-07-28 16:55] LABS: ALT (SGPT) 326 U/L (0-50); AST (SGOT) 111 U/L (17-59); Albumin 4.1 g/dl (3.5-5.0); Alkaline Phosphatase 83 U/L (38-126); Amylase 140 U/L (30-110); Blood Urea Nitrogen 24 mg/dl (9-20); Calcium 9.3 mg/dl (8.4-10.2); Carbon Dioxide 25 mmol/L (22-30); Chloride 114 mmol/L (98-107); Creatine Phosphokinase 536 U/L (55-170); Direct Bilirubin 0.3 mg/dl (0.0-0.4); Estimated Creatinine Clearance > 125 ml/min; GGTP 39 U/L (15-73); Glucose 137 mg/dl (70-99); Lipase 355 U/L (23-300); Magnesium 2.1 mg/dl (1.6-2.3); Phosphorus 3.7 mg/dl (2.5-4.5); Sodium 150 mmol/L (135-145); Total Bilirubin 1.1 mg/dl (0.2-1.3); Total CK 536 U/L (55-170); Total Protein 6.3 g/dl (6.3-8.2); eGFR > 60.00
[2024-07-28 16:57] LABS: LDH 1029 U/L (120-246)
[2024-07-28] MEDS: ProAIR HFA INHALER INH (16:57)
[2024-07-28 17:00] LABS: Troponin I 0.081 ng/ml
[2024-07-28] MEDS: LOVENOX 40 MG SC (17:09)
[2024-07-28 17:16] LABS: CKMB 5.2 ng/ml (0.0-2.4)
[2024-07-28] MEDS: FORTAZ 1000 MG IV (17:41)
[2024-07-28] MEDS: STERILE WATER FOR INJECTION 10 ML IV (17:41)
[2024-07-28] MEDS: ProAIR HFA INHALER 4 PUFF INH (19:39)
--- NOTE | 2024-07-28 20:00 | PTCARENOTE ---
Received pt intubated, GCS = 4. No w/d to pain. Pupils sluggish, 3mm B/L. No gag or corneals. SR/ST on tele, HR 90-100s. L radial A line zeroed and transduced. R fem sheath zeroed and transduced. HOB flat. On cardene gtt to maintain SBP 140-160.
Afebrile. + pulses. #7.5 ETT @ 26 R lip. Tolerating A/C 22/450/+10/40%. Overbreathing vent. Not to move ETT per orders. Bite block in. Mouth care provided. Lungs coarse. Temp sensing read cath draining yellow urine. See I&O. Hypoactive bowel
sounds. OG tube flushed per orders. R PICC with fentanyl @175mcg, cardene at 5mg, and 1/2NS @100ml/hr.
Coordinating care with JESSICA mckeon and PEPE Walters. O2 challenge completed from 1701-1415, ABG drawn at 1999.
[2024-07-28 20:04] LABS: B.E. 1.3 mmol/L; HCO3 22.9 mmol/L (21-28); PCO2 28 mmHg (35-48); PO2 378 mmHg (83-108); pH 7.52 (7.35-7.45)
[2024-07-28 22:16] LABS: % Basophils 0.2 % (0-2); % Immature Granulocytes 1.1 % (0-0.5); % Lymphocytes 5.9 % (20.5-51.1); % Monocytes 6.6 % (1.7-9.3); % Neutrophils 86.2 % (42.2-75.2); Absolute Immature Granulocytes 0.2 10^3/uL (0-0.05); Absolute Lymphocytes 0.9 10^3/uL (1.2-3.4); Absolute Neutrophils 13.5 10^3/uL (1.4-6.5); Hematocrit 42.3 % (39.0-52.0); Hemoglobin 15.2 g/dL (13.0-18.0); Mean Corp Hgb Conc. 35.9 g/dL (33.0-37.0); Mean Corpuscular Hgb 29.8 pg (27.0-31.0); Mean Corpuscular Volume 82.9 fL (80.0-94.0); Mean Platelet Volume 9.6 fL (7.4-10.4); Nucleated Red Blood Cells % 0 % (-); Platelet Count 212 10^3/uL (130-400); Red Cell Dist. Width 12.3 % (11.5-14.5); White Blood Cell Count 15.7 10^3/uL (4.8-10.8)
[2024-07-28 22:17] LABS: Urine Albumin Negative (Neg - Trace); Urine Bilirubin Negative (Negative); Urine Character Clear (Clear); Urine Color Yellow; Urine Glucose Negative (Negative); Urine Ketone Negative (Negative); Urine Leukocyte Trace (Negative); Urine Nitrite Negative (Negative); Urine Occult Blood Negative (Negative); Urine Urobilinogen Negative (Neg - 1+)
[2024-07-28 22:27] LABS: APTT 28.1 Sec (23.4-35.0); INR 1.23; PT 15.3 Sec (11.4-14.6)
[2024-07-28 22:30] LABS: Urine Bacteria Few (Negative); Urine Squamous Cell 0-2 /LPF (Few)
[2024-07-28 22:31] LABS: ALT (SGPT) 287 U/L (0-50); AST (SGOT) 95 U/L (17-59); Albumin 3.9 g/dl (3.5-5.0); Alkaline Phosphatase 80 U/L (38-126); Amylase 149 U/L (30-110); Blood Urea Nitrogen 24 mg/dl (9-20); Calcium 9.3 mg/dl (8.4-10.2); Carbon Dioxide 22 mmol/L (22-30); Chloride 115 mmol/L (98-107); Creatine Phosphokinase 406 U/L (55-170); Direct Bilirubin 0.4 mg/dl (0.0-0.4); Estimated Creatinine Clearance > 125 ml/min; GGTP 39 U/L (15-73); Glucose 118 mg/dl (70-99); LDH 981 U/L (120-246); Lipase 372 U/L (23-300); Phosphorus 3.2 mg/dl (2.5-4.5); Potassium 3.6 mmol/L (3.5-5.1); Sodium 149 mmol/L (135-145); Total Bilirubin 1.2 mg/dl (0.2-1.3); Total CK 406 U/L (55-170); Total Protein 6.1 g/dl (6.3-8.2); Urine Red Blood Cell 0-2 /HPF (0-2); eGFR > 60.00
[2024-07-28 22:41] LABS: Troponin I 0.075 ng/ml
[2024-07-28 22:45] LABS: ACT-LR - POC 142 Seconds (116-155)
--- NOTE | 2024-07-28 23:40 | W.PN.CARD.SR ---
Sheath/IABP Sheath Removal
Sheath Removal
Right Arterial Femoral:
Site appearance prior to sheath removal: Intact
Sheath removed by:: Physician bilingual executive assistant
Name of associate removing sheath: Brandan Reeves
Time of sheath removal: 22:55
Time hemostasis achieved: 23:25
Site appearance post sheath removal: Intact
Method of Hemostasis Post Sheath Removal: Manual Pressure and Sandbag
Dressing dry and intact?: Yes
Comments: Will leave sandbag in place x 4hrs and keep pt flat supine in bed x 6hrs
[2024-07-29 00:04] LABS: B.E. 1.3 mmol/L; HCO3 22.6 mmol/L (21-28); PCO2 27 mmHg (35-48); PO2 406 mmHg (83-108); pH 7.53 (7.35-7.45)
[2024-07-29] MEDS: SUBLIMAZE 50 MCG IV ×7 (00:41→18:06)
--- NOTE | 2024-07-29 01:00 | PTCARENOTE ---
JESSICA rep requested SBT. FITNESS FLOOR ATTENDANT and RT at bedside. Placed on CPAP. Pt. became hypertensive, tachycardic with rhythm changes and profusely diaphoretic within 1 minute. Shallow breaths taken - tidal volumes ~200. Placed back on previous vent settings.
Fentanyl bolus given.
CV PA Ed removed R femoral sheath at 2300- manual pressure held by him. Saline bag placed on site and keep flat x4hrs per verbal order. Site c/d/i. Neurovascular checks unchanged.
[2024-07-29] MEDS: TRANDATE 10 MG IV (01:30)
[2024-07-29] MEDS: ZOSYN 50 IV ×3 (02:32→13:52)
[2024-07-29] MEDS: SUBLIMAZE 100 IV ×4 (02:32→19:22)
[2024-07-29] MEDS: ProAIR HFA INHALER 4 PUFF INH ×5 (03:43→15:22)
[2024-07-29 04:20] LABS: B.E. 1.2 mmol/L; HCO3 23.1 mmol/L (21-28); PCO2 29 mmHg (35-48); PO2 436 mmHg (83-108); pH 7.51 (7.35-7.45)
[2024-07-29 04:28] LABS: % Basophils 0.1 % (0-2); % Eosinophils 0.1 % (0-6); % Immature Granulocytes 0.9 % (0-0.5); % Lymphocytes 6.1 % (20.5-51.1); % Monocytes 5.7 % (1.7-9.3); % Neutrophils 87.1 % (42.2-75.2); Absolute Immature Granulocytes 0.1 10^3/uL (0-0.05); Absolute Lymphocytes 0.9 10^3/uL (1.2-3.4); Absolute Monocytes 0.8 10^3/uL (0.1-0.6); Absolute Neutrophils 12.6 10^3/uL (1.4-6.5); Hemoglobin 14.6 g/dL (13.0-18.0); Mean Corp Hgb Conc. 35.6 g/dL (33.0-37.0); Mean Corpuscular Hgb 29.7 pg (27.0-31.0); Mean Corpuscular Volume 83.3 fL (80.0-94.0); Mean Platelet Volume 9.2 fL (7.4-10.4); Nucleated Red Blood Cells % 0 % (-); Platelet Count 182 10^3/uL (130-400); Red Blood Cell Count 4.92 10^6/uL (4.70-6.10); Red Cell Dist. Width 12.5 % (11.5-14.5); White Blood Cell Count 14.5 10^3/uL (4.8-10.8)
[2024-07-29 04:37] LABS: APTT 27.2 Sec (23.4-35.0); INR 1.24; PT 15.4 Sec (11.4-14.6)
[2024-07-29] MEDS: CARDENE 200 IV (04:51)
[2024-07-29 04:52] VITALS: BMI 21.2
--- NOTE | 2024-07-29 04:53 | PTCARENOTE ---
O2 challenge completed, ABG drawn 30 min after. Low dose cardene on and off through the night to maintain SBP 140-160. Fentanyl boluses given PRN. R groin dsg c/d/i, soft, no hematoma present. Neuro status unchanged. Pt. diaphoretic on and off.
[2024-07-29 04:55] LABS: ALT (SGPT) 251 U/L (0-50); AST (SGOT) 82 U/L (17-59); Albumin 3.6 g/dl (3.5-5.0); Alkaline Phosphatase 82 U/L (38-126); Amylase 130 U/L (30-110); Blood Urea Nitrogen 25 mg/dl (9-20); Calcium 9.4 mg/dl (8.4-10.2); Carbon Dioxide 22 mmol/L (22-30); Chloride 115 mmol/L (98-107); Direct Bilirubin 0.4 mg/dl (0.0-0.4); Estimated Creatinine Clearance > 125 ml/min; GGTP 40 U/L (15-73); Glucose 120 mg/dl (70-99); LDH 924 U/L (120-246); Lipase 277 U/L (23-300); Magnesium 2.1 mg/dl (1.6-2.3); Phosphorus 3.3 mg/dl (2.5-4.5); Phosphorus 3.4 mg/dl (2.5-4.5); Potassium 3.7 mmol/L (3.5-5.1); Sodium 148 mmol/L (135-145); Total Bilirubin 1.1 mg/dl (0.2-1.3); Total CK 368 U/L (55-170); Total Protein 5.9 g/dl (6.3-8.2); Triglycerides 115 mg/dl (10-149); eGFR > 60.00
[2024-07-29] MEDS: FORTAZ 1000 MG IV (05:18)
[2024-07-29] MEDS: STERILE WATER FOR INJECTION 10 ML IV (05:18)
[2024-07-29 05:22] LABS: CKMB 5.2 ng/ml (0.0-2.4)
[2024-07-29] MEDS: 0.45%NACL 1000 IV ×2 (05:22→15:21)
--- NOTE | 2024-07-29 07:43 | W.PN.HOSP.TC ---
Today's Communication/Plan
-
for OR today for organ donation
Assessment / Plan
Assessment / Plan
HPI: 33-year-old male past medical history of cardiac arrest from drug overdose, heroin use, cardiomyopathy, vent dependent respiratory failure, aspiration pneumonia, nephrolithiasis, leukoplakia of tongue, depression, presenting for altered mental
status. He was found unresponsive laying on the couch by his father. Per paramedics he was last awake at 9 AM this morning and EMS was dispatched at 2:07 PM and police found him apneic and pulseless. Patient was given 4 mg of Narcan and CPR was
started. Paramedics arrived and gave additional 4 mg Narcan and was found to be in ventricular fibrillation. He was shocked once with hoahaoism of sinus rhythm and pulse. He was intubated prior to arrival.
Patient has not used drugs in 2 years. Father denies any suicidal intent recently. Patient does use medical marijuana. He does not drink alcohol and father is not aware of any other drug use.
#Acute hypercapnic respiratory failure
#Ventricular fibrillation cardiac arrest secondary to fentanyl/heroin overdose
Appreciate it architecture consultant input, continue vent management as per it architecture consultant
EEG shows mild diffuse slowing, neurology consulted
Head CT findings consistent with global anoxia, s/p Keppra for jerking
Father informed of poor prognosis, pt unlikely to have neurologic recovery
Not consistent with brain
Plan for organ donation
Protocol for organ donation -cardiac catheterization, bronchoscopy
#Hypernatremia
Due to hypertonic saline
Hypotonic IVFs, free water through tube
DDAVP per it architecture consultant
#Hypokalemia
#Hypophosphatemia
Repleted by IV, resolved
#Cardiogenic shock
Status post Levophed
#Leukocytosis/fever
Continue Zosyn
#Tachycardia
#Hypertension
Continue Cardene drip
IV metoprolol and labetalol as needed
#Coffee ground emesis
Continue PPI
#Metabolic acidosis secondary to cardiac arrest
#Acute kidney injury
Resolved with IV fluids
#Shock liver
#Transaminitis
Supportive care, trend LFTs
History of fentanyl, benzodiazepine, cocaine use
-As per prior UDS
History of cardiomyopathy
-LV ejection fraction is 55-60%
Nephrolithiasis
History of leukoplakia of tongue
Depression
DVT prophylaxis�subcu heparin
Full code
Updated father at bedside 07/25, 07/26
Total time spent to see the patient on the floor, examine the patient, review data and lab results, discuss treatment plan with patient, nursing staff around 40 minutes.
Physical Exam
General: Intubated, appears acutely ill
HEENT: Normocephalic, Atraumatic
Respiratory: Clear to Auscultation bilaterally
Cardiac: Normal S1/S2, Regular Rate and Rhythm
GI: Soft, Nontender, Nondistended, Normal Bowel Sounds
Neuro: Nonresponsive
Anticipated Discharge: Within 24 hours
Subjective/Interval History
-
Date of Service: July 29, 2024
patient sedated
Objective Data
-
Labs:
Laboratory Results
07/28/24 07/28/24 07/28/24
20:00 22:05 23:59
WBC 15.7 H
Hgb 15.2
Hct 42.3
Plt Count 212
PT 15.3 H
INR 1.23
APTT 28.1
HCO3 22.9 22.6
Sodium 149 H
Potassium 3.6
Chloride 115 H
Carbon Dioxide 22
BUN 24 H
Creatinine 0.6 L
Glucose 118 H
Calcium 9.3
Total Bilirubin 1.2
AST 95 H
ALT 287 H
Alkaline Phosphatase 80
07/29/24 07/29/24 07/29/24
04:13 04:15 10:00
WBC 14.5 H Pending
Hgb 14.6 Pending
Hct 41.0 Pending
Plt Count 182 Pending
PT 15.4 H Pending
INR 1.24 Pending
APTT 27.2 Pending
HCO3 23.1
Sodium 148 H Pending
Potassium 3.7 Pending
Chloride 115 H Pending
Carbon Dioxide 22 Pending
BUN 25 H Pending
Creatinine 0.6 L Pending
Glucose 120 H Pending
Calcium 9.4 Pending
Total Bilirubin 1.1 Pending
AST 82 H Pending
ALT 251 H Pending
Alkaline Phosphatase 82 Pending
Vital Signs:
Vital Signs
Temp Pulse Resp BP Pulse Ox
98.6 F 86 23 175/94 100
07/29/24 04:00 07/29/24 06:15 07/29/24 06:15 07/29/24 01:30 07/29/24 06:15
I&O
07/28/24 07/29/24 07/30/24
06:59 06:59 06:59
Intake Total 3280.0 / 3442.5 3480.0 / 3480.0
Output Total 1864 3165 / 3165
Balance 1415.0 / 1427.5 315.0 / 315.0
Review of Systems
-
Unable to obtain full review of systems at this time due to: Patient Intubation
Physical Exam
-
General: Well Developed and Well Nourished
HEENT: Normocephalic and Other (leukoplakia of tongue); Negative Atraumatic
Respiratory: Negative Wheezes or Rales
Cardiac: Regular Rhythm and S1/S2
GI: Soft
Musculoskeletal: No Edema
Neuro: AO x 3
Hematologic / Lymphatic: No Lymphadenopathy
Psych: Calm
Data Reviewed
-
Labs: Labs Reviewed by me
[2024-07-29] MEDS: NSS (PRESERVATIVE FREE) 10 ML IV (07:44)
[2024-07-29] MEDS: PROTONIX IV 40 MG IV (07:44)
--- NOTE | 2024-07-29 08:15 | PTCARENOTE ---
Received pt @ change of shift. Unresponsive/intubated. Pupils 5mm b/l sluggish; no corneal reflex present. Intermittent posturing; remains rigid. SR/ST on monitor. SBP's up to 180's, Cardene gtt back on per orders- see flow sheet. #7.5 ETT, 26 @
lip on R side; not moved per orders. SpO2 98% on vent settings AC22/450/.40/+10; over breathing vent. Auscultated coarse breath sounds throughout. Suctioned small thick/moore secretions from ett; mod thin white oral sections; no gag reflex; mouth
care provided per protocol. Hypoactive BS. OG tube clamped; flushed w distilled H20 Q4H. Temp sensing read in place draining yellow urine. L rad A-line in place; transduced, calibrated, and monitored; all ports patent and secured. R DL PICC in
place w 1/2 NSS @ 100mL/hr, cardene gtt, and fent gtt- see flow sheet. # 20 L FA patent, dressing c/d/i. Complete hygiene given; repositioned.
[facility] life on unit, coordinating care. O2 challenge completed w RT @ 5638-9451. ABG drawn and sent to lab. Safe environment maintained.
[2024-07-29 08:22] LABS: B.E. -0.1 mmol/L; HCO3 22.8 mmol/L (21-28); PCO2 32 mmHg (35-48); PO2 452 mmHg (83-108); pH 7.46 (7.35-7.45)
--- NOTE | 2024-07-29 10:36 | W.PN.INTV ---
Today's Communication / Plan
Recommendations
Continue supportive care
Organ donation after cardiac later today.
No additional recommendation
Assessment
-
33-year-old man with history of drug abuse. Found unresponsive by his father. Last time seen awake was 9 AM. Police arrived and provided Narcan. Subsequently EMS provided more Narcan and patient apparently was on ventricular fibrillation x 1
shock provided with regain of spontaneous circulation. Intubated on the field. ICU consulted 07/23/2024 for further care.
Hypercapnic respiratory failure due to drug overdose-last time seen was 9 AM. Found at 2 PM.
Subsequent ventricular fibrillation arrest-status post defibrillation x 1 with rapid regain of circulation.
Metabolic/respiratory acidosis: pH 7.18/40/301/14
Increased lactic acid postcardiac arrest.
Rule out anoxic brain injury: So far CT negative for bleeding or signs of ischemia or edema.
Possible aspiration event: Right lower lobe atelectasis versus pneumonia on chest x-ray. Reviewed.
Conditions present prior admission:
History of asthma
History of cardiomyopathy, EF 35%, resolved 2020-recovered LVEF in 2022 back to normal.
History of nephrolithiasis
History of Cardiac arrest, asystole, December 2020.
EPI x 5, CPR x 35 min (per EMS)
History of cardiac/respiratory arrest 02/17/2023.
History of Acute renal failure, creatinine 2.8
History of incarceration for 4-1/2 years
Former tobacco history
Assessment and plan:
Critically ill: Intubated on mechanical ventilation.
Respiratory-hypercapnic respiratory failure due to drug overdose/cardiac arrest, PEA-briefly on ventricular tachycardia per EMS. Received 1 shock with rapid conversion and regain of spontaneous circulation.
Toxicology: Positive for amphetamines/cocaine fentanyl and fentanyl a positive.
Status post CPR: Regained spontaneous circulation after one shock. No further arrest. Has remained relatively hemodynamically stable without arrhythmias.
Likely primarily due to respiratory arrest
No indication for TTM , discussed with primary team in the emergency room on admission. Both in agreement.
-
As of 07/29/2024, patient will be going today for organ donation after cardiac .
Will defer further management to [facility]
Can assist as necessary on preparation for organ donation
-
Continue mechanical ventilation without change.
Organ donation protocol.
-
Neurological examination has not changed. Remains comatose-overbreathing the ventilator.
Posturing
Biting the ET tube.
Not consistent with brain .
-
CT head 07/25/2024: consistent with global anoxia. No evidence for bleeding.
CT chest 07/26/2024: Ongoing signs of progressive global anoxic brain injury. Severe
-
Blood pressure control with labetalol as necessary
Wean off nicardipine
-
Lactic acid has cleared
Renal function is normal
[place] metabolic acidosis likely due to normal saline
Hypernatremia.
Received 1 dose of desmopressin 07/29/2024
Continue quarter normal saline.
Laboratories per organ donation protocol
Continue NG tube - free water.
-
Discussed with [employer] business [employer] representative.
Status post bronchoscopy
Status post left heart catheterization: Normal LVEF. No coronary Tory disease.
Echocardiogram normal
CT chest abdomen pelvis no CT chest abdomen pelvis noted.
Right lower lobe atelectasis/consolidation.
Sputum culture with MSSA/Jo
Continue antibiotics for now-[facility] protocol
-
Morning coffee ground emesis on NG tube
on PPI
-
DVT prophylaxis: Lovenox for DVT prophylaxis.
GI prophylaxis: Protonix
I personally discussed with father in detail and explained above 07/23/2024, 07/24/2024 and 07/25/2024,07/26/2024. He states that he is familiar with this clinical scenario. Will continue hemodynamic support. Prognosis is poor for meaningful
recovery.
Discussed the case with neurology and primary team. Chances of recovery are minimal, significant brain edema. Appears family would not want to continue with resuscitation.
Continue support for now. They have decided for organ donation in the next 24 hours if patient does not progress to brain .
For organ donation after cardiac on 07/29/2024.
Critical care statement: A total of 31, minutes of critical care time was provided for this patient today. This includes management of unstable vital signs, evaluation of the patient at bedside, reviewing the patient's pertinent medical records
including ventilator settings, arterial blood gases, radiographs, microbiology, laboratory evaluations and discussion with primary team, critical care nursing, and respiratory therapy.

Reviewed images.
-
-
Echocardiogram 02/17/2023:
Reviewed, showed normal ejection fraction. Normal left atrial size. No mitral rotation. No aortic regurgitation.
Chest x-ray: Reviewed relatively clear. Possible right lower lobe abnormality.
Subjective Dataa
Subjective Data
Date of Service:
Date of Service: July 29, 2024
Chief Complaint: Program Clerk Follow Up (Drug overdose/hypercapnic respiratory failure requiring ventilation)
Subjective:
No meaningful neurological recovery
Organ donation protocol ongoing
Review of Systems
General: Unobtainable - Pat Unresp
Objective Data
Data Reviewed
Vital Signs / I&O / Oxygen:
Vital Signs
Temp Pulse Resp BP Pulse Ox
98.0 F 114 19 175/94 100
07/29/24 08:13 07/29/24 09:00 07/29/24 09:00 07/29/24 01:30 07/29/24 09:00
Intake and Output
07/28/24 07/29/24 07/30/24
06:59 06:59 06:59
Intake Total 3280.0 / 3442.5 3480.0 / 3597.5 595.0 / 595.0
Output Total 1864 3165 / 3195 280 / 280
Balance 1415.0 / 1427.5 315.0 / 402.5 315.0 / 315.0
SaO2 [A/C] 99
SaO2 100
Physical Exam
General: Comfortable
HEENT: Normocephalic
Cardiovascular: S1-S2 and Regular Rhythm
Respiratory: Clear, Non-Labored Respirations and ET Tube (No significant secretion)
GI: Soft and Non Distended
Neurology: Other (Unresponsive, on sedation. Overbreathing the ventilator. No gag reflex. Pupils equals/small/minimal no response to light. No withdrawal to pain. Posturing.) and Other (Posturing/rigid.)
Skin: Warm
Labs/Micro/Reports
Laboratory Results
07/28/24 07/28/24 07/28/24
10:23 15:04 15:32
PT 14.3
INR 1.12
APTT 25.6
pH 7.47 H 7.38
pCO2 34 L 43
pO2 120 H 394 H
HCO3 24.7 25.4
O2 Delivery Level
07/28/24 07/28/24 07/28/24
16:22 20:00 22:05
PT 14.6 15.3 H
INR 1.16 1.23
APTT 23.9 28.1
pH 7.52 H
pCO2 28 L
pO2 378 H
HCO3 22.9
O2 Delivery Level
07/28/24 07/29/24 07/29/24
23:59 04:13 04:15
PT 15.4 H
INR 1.24
APTT 27.2
pH 7.53 H 7.51 H
pCO2 27 L 29 L
pO2 406 H 436 H
HCO3 22.6 23.1
O2 Delivery Level
07/29/24
08:17
PT
INR
APTT
pH 7.46 H
pCO2 32 L
pO2 452 H
HCO3 22.8
O2 Delivery Level
[2024-07-29 10:42] LABS: % Basophils 0.1 % (0-2); % Eosinophils 0.1 % (0-6); % Immature Granulocytes 0.8 % (0-0.5); % Lymphocytes 5.1 % (20.5-51.1); % Monocytes 4.9 % (1.7-9.3); Absolute Immature Granulocytes 0.1 10^3/uL (0-0.05); Absolute Lymphocytes 0.8 10^3/uL (1.2-3.4); Absolute Monocytes 0.8 10^3/uL (0.1-0.6); Absolute Neutrophils 13.7 10^3/uL (1.4-6.5); Mean Corpuscular Hgb 30.1 pg (27.0-31.0); Mean Platelet Volume 9.8 fL (7.4-10.4); Nucleated Red Blood Cells % 0 % (-); Platelet Count 175 10^3/uL (130-400); Red Blood Cell Count 4.65 10^6/uL (4.70-6.10); Red Cell Dist. Width 12.5 % (11.5-14.5); White Blood Cell Count 15.4 10^3/uL (4.8-10.8)
[2024-07-29 10:53] LABS: INR 1.25; PT 15.6 Sec (11.4-14.6)
[2024-07-29 10:54] LABS: APTT 27.8 Sec (23.4-35.0)
[2024-07-29 11:09] LABS: ALT (SGPT) 214 U/L (0-50); AST (SGOT) 68 U/L (17-59); Albumin 3.5 g/dl (3.5-5.0); Alkaline Phosphatase 78 U/L (38-126); Amylase 110 U/L (30-110); Blood Urea Nitrogen 27 mg/dl (9-20); Calcium 9.3 mg/dl (8.4-10.2); Carbon Dioxide 22 mmol/L (22-30); Chloride 116 mmol/L (98-107); Direct Bilirubin 0.4 mg/dl (0.0-0.4); Estimated Creatinine Clearance > 125 ml/min; GGTP 42 U/L (15-73); Glucose 138 mg/dl (70-99); LDH 862 U/L (120-246); Lipase 209 U/L (23-300); Phosphorus 3.7 mg/dl (2.5-4.5); Potassium 3.9 mmol/L (3.5-5.1); Sodium 146 mmol/L (135-145); Total CK 309 U/L (55-170); Total Protein 5.6 g/dl (6.3-8.2); eGFR > 60.00
[2024-07-29 11:12] LABS: Urine Albumin Trace (Neg - Trace); Urine Bilirubin Negative (Negative); Urine Character Clear (Clear); Urine Color Yellow; Urine Glucose Negative (Negative); Urine Ketone Negative (Negative); Urine Leukocyte Trace (Negative); Urine Nitrite Negative (Negative); Urine Occult Blood Negative (Negative); Urine Urobilinogen Negative (Neg - 1+)
[2024-07-29 11:12] LABS: Troponin I 0.056 ng/ml
[2024-07-29 11:47] LABS: B.E. 1.6 mmol/L; HCO3 24.7 mmol/L (21-28); O2 Saturation % 96.8 % (94-98); PCO2 34 mmHg (35-48); PO2 453 mmHg (83-108); pH 7.47 (7.35-7.45)
[2024-07-29 11:49] LABS: O2 Therapy vent
[2024-07-29 11:49] LABS: Urine Bacteria Few (Negative)
--- NOTE | 2024-07-29 12:30 | PTCARENOTE ---
Coordinating care w [facility] ict sales representative, Leonarda/Anika. Tentative OR timing for 1800, [facility] rep in contact w necessary contacts to facilitate. Cardene gtt remains on/off to keep SBP 140-160- see flow sheet. Pt. increased CPOT w repositioning, prn IV
fent bolus admin and gtt increased- see MAR/ flow sheet. Routine [facility] lab work drawn and sent to lab per orders. Safe environment maintained.
[2024-07-29 14:13] LABS: % Basophils 0.1 % (0-2); % Eosinophils 0.1 % (0-6); % Immature Granulocytes 0.7 % (0-0.5); % Lymphocytes 7.6 % (20.5-51.1); % Monocytes 5.4 % (1.7-9.3); % Neutrophils 86.1 % (42.2-75.2); Absolute Immature Granulocytes 0.1 10^3/uL (0-0.05); Absolute Lymphocytes 1.2 10^3/uL (1.2-3.4); Absolute Monocytes 0.8 10^3/uL (0.1-0.6); Hematocrit 38.7 % (39.0-52.0); Mean Corp Hgb Conc. 36.2 g/dL (33.0-37.0); Mean Corpuscular Hgb 30.2 pg (27.0-31.0); Mean Corpuscular Volume 83.4 fL (80.0-94.0); Mean Platelet Volume 9.6 fL (7.4-10.4); Nucleated Red Blood Cells % 0 % (-); Platelet Count 191 10^3/uL (130-400); Red Blood Cell Count 4.64 10^6/uL (4.70-6.10); Red Cell Dist. Width 12.6 % (11.5-14.5); White Blood Cell Count 15.1 10^3/uL (4.8-10.8)
[2024-07-29 14:22] LABS: INR 1.26; PT 15.6 Sec (11.4-14.6)
[2024-07-29 14:24] LABS: Fibrinogen 410 MG/DL (199-459)
[2024-07-29 14:32] LABS: ALT (SGPT) 212 U/L (0-50); AST (SGOT) 72 U/L (17-59); Albumin 3.6 g/dl (3.5-5.0); Alkaline Phosphatase 78 U/L (38-126); Blood Urea Nitrogen 27 mg/dl (9-20); Calcium 9.2 mg/dl (8.4-10.2); Carbon Dioxide 22 mmol/L (22-30); Chloride 115 mmol/L (98-107); Creatine Phosphokinase 285 U/L (55-170); Direct Bilirubin 0.4 mg/dl (0.0-0.4); Estimated Creatinine Clearance > 125 ml/min; GGTP 44 U/L (15-73); Glucose 122 mg/dl (70-99); Phosphorus 3.2 mg/dl (2.5-4.5); Potassium 3.9 mmol/L (3.5-5.1); Sodium 146 mmol/L (135-145); Total Bilirubin 0.9 mg/dl (0.2-1.3); Total Protein 5.8 g/dl (6.3-8.2); eGFR > 60.00
[2024-07-29 16:15] LABS: PCO2 33 mmHg (35-48); PO2 458 mmHg (83-108); pH 7.47 (7.35-7.45)
--- NOTE | 2024-07-29 16:16 | W.PN.DEATH ---
Documented by User: [email or web address] Sharif 07/29/24 20:20
Pronouncement of
-
Time of : 20:16
Date of : 07/29/24
Cause of : opiate overdose
Family Notified: Yes (nursing staff to notify family)

Documented by User: Yesica Almodovar MD
Pronouncement of
-
Called to see patient to pronounce.
No spontaneous heart tones or respirations noted.
Patient not responsive to verbal stimuli.
Patient is pronounced .
[2024-07-29 16:25] LABS: Lactic Acid 1.1 mmol/L (0.7-2.0)
[2024-07-29] MEDS: NSS (PRESERVATIVE FREE) 0.5 ML IV (18:06)
[2024-07-29] MEDS: ATIVAN 1 MG IV (18:06)
[2024-07-29] MEDS: HEPARIN 30000 UNITS IV (19:20)
[2024-07-29] MEDS: ATIVAN 2 MG IV ×6 (19:25→20:15)
[2024-07-29] MEDS: NSS (PRESERVATIVE FREE) 1 ML IV ×6 (19:25→20:15)
[2024-07-29] MEDS: DILAUDID 1 MG IV ×7 (19:25→20:15)
--- NOTE | 2024-07-29 20:00 | PTCARENOTE ---
Pt. transported via bed w RT and [facility] staff to OR for possible organ donation following cardiac . Pt. prepped in sterile field by OR team. Report given to DIRECTOR OF LABOR AND DELIVERY, Jasson, in OR. S/P report, assisted oncoming RN w initiation of comforts measures
per Dr. Almodovar. Oncoming RN admin comfort meds prior to extubation and pt. extubated @ 1925 by RT. Comfort care ongoing, hand off completed to oncoming RN. No further needs from this RN @ this time.
[2024-07-29] MEDS: ProAIR HFA INHALER INH (20:01)
--- NOTE | 2024-07-29 21:01 | PTCARENOTE ---
Addendum entered by Jasson Comer RN 07/29/24 21:33:
Sodium chloride for dilution of Ativan, not scanning into MAR. Pharmacy notified.
Original Note:
Received handoff in OR by previous RN. Comfort measure orders per Dr. Almodovar bedside.
Time of : (2015).
Fentanyl gtt bag collected and wasted upon return to ICU, unable to retrieve tubing do to sterile field/transplant team. All unused meds w/ slip returned to pharmacy.
Labs collected by perfusion, dropped off to lab by this RN.
No further needs from ICU nursing per [facility] rep.
Chart left in OR w/ [facility] team as requested.
[2024-07-29 21:24] LABS: AST (SGOT) 49 U/L (17-59); Albumin 2.2 g/dl (3.5-5.0); Alkaline Phosphatase 57 U/L (38-126); Direct Bilirubin 0.3 mg/dl (0.0-0.4); Total Bilirubin 0.6 mg/dl (0.2-1.3)
[2024-07-29 21:50] LABS: ALT (SGPT) 108 U/L (0-50)
[2024-07-30 11:40] LABS: Glycohemoglobin (HgbA1c) 5.3 % (4.0-5.6)
--- NOTE | 2024-07-30 13:10 | W.DCSUMMARY ---
Discharge Summary
Discharge Data
Date of Admission: 07/23/24
Date of Discharge: 07/29/24
-
Pending Results: No
Hospital Course
Date of 07/29/24
Time of 20:16
Cause of : Opiate Overdose
Mr. Solomon Brannon was a 34 yo man with hx cardiac arrest from drug overdose, heroin use, cardiomyopathy brought in by EMS after found unresponsive by father without pulse. CPR initiated, EMS arrived and patient received 4mg Narcan x 2 then
found to be in VFib s/p shock with shinto of sinus rhythm. He was intubated and brought to the ER. Patient was admitted to the ICU on Ventilator. EEG showed diffuse mild slowing. He was without any meaningful neurologic recovery over the
next several days. CT showed global cerebral anoxia. Decision made to proceed with organ donation. He underwent organ donation protocol with cardiac catheterization and bronchoscopy. He was taken to the OR on the evening of 07/29. After extubation
patient passed peacefully at 20:16 and he was discharged to [facility].
Discharge Plan
-
Patient Disposition:
Date/Time
Date/Time: 07/29/24 20:16
Discharge Date and Time
Discharge Date/Time: 07/29/24 20:16
Print Language: HUNGARIAN
== END 2024-07-29 20:16 | disposition expired | DRG 917 ==
LOC: ICU 17:40
PROVIDERS: Family Medicine; Nurse Practitioner Family; Nurse Practitioner Primary Care; Student in an Organized Health Care Education/Training Program; ADMITTING PHYSICIAN Hospitalist; ATTENDING PHYSICIAN Student in an Organized Health Care Education/Training Program; CONSULT PHYSICIAN Internal Medicine Critical Care Medicine; CONSULT PHYSICIAN Psychiatry & Neurology Neurology; EMERGENCY PHYSICIAN Emergency Medicine
PROC: 5A1955Z Respiratory Ventilation, Greater than 96 Consecutive Hours (ICD-10-PCS; 2024-07-23)
PROC: 03HY32Z Insertion of Monitoring Device into Upper Artery, Percutaneous Approach (ICD-10-PCS; 2024-07-23)
PROC: B2111ZZ Fluoroscopy of Multiple Coronary Arteries using Low Osmolar Contrast (ICD-10-PCS; 2024-07-28)
PROC: 0B9F8ZZ Drainage of Right Lower Lung Lobe, Via Natural or Artificial Opening Endoscopic (ICD-10-PCS; 2024-07-28)
PROC: 4A023N7 Measurement of Cardiac Sampling and Pressure, Left Heart, Percutaneous Approach (ICD-10-PCS; 2024-07-28)
DX: T40.411A Poisoning by fentanyl or fentanyl analogs, accidental (unintentional), initial encounter (principal); J96.02 Acute respiratory failure with hypercapnia; K72.00 Acute and subacute hepatic failure without coma; I42.9 Cardiomyopathy, unspecified; J98.11 Atelectasis; N17.9 Acute kidney failure, unspecified; G93.1 Anoxic brain damage, not elsewhere classified; E87.0 Hyperosmolality and hypernatremia; E87.4 Mixed disorder of acid-base balance; T40.1X1A Poisoning by heroin, accidental (unintentional), initial encounter; F32.A Depression, unspecified; I49.01 Ventricular fibrillation; I46.2 Cardiac arrest due to underlying cardiac condition; E87.6 Hypokalemia; E83.39 Other disorders of phosphorus metabolism; D72.829 Elevated white blood cell count, unspecified; R50.9 Fever, unspecified; I10 Essential (primary) hypertension; R00.0 Tachycardia, unspecified; R11.10 Vomiting, unspecified; Z66 Do not resuscitate; F14.10 Cocaine abuse, uncomplicated; F11.10 Opioid abuse, uncomplicated; K13.21 Leukoplakia of oral mucosa, including tongue; F17.200 Nicotine dependence, unspecified, uncomplicated; Z86.74 Personal history of sudden cardiac arrest; Z11.52 Encounter for screening for COVID-19; Z87.442 Personal history of urinary calculi
CPT/HCPCS: 70450; 71045; 71250; 74176; 80048; 80053; 80076; 80306; 80307; 81003; 81015; 82040; 82150; 82247; 82248; 82550; 82553; 82570; 82805; 82962; 82977; 83036; 83605; 83615; 83690; 83735; 83935; 84075; 84100; 84155; 84295; 84300; 84439; 84443; 84450; 84460; 84478; 84484; 85014; 85018; 85025; 85027; 85384; 85610; 85730; 86850; 86900; 86901; 86920; 87070; 87205; 87811; 93005; 93306; 93458; 94002; 94003; 94640; 95714; 95816; 96361; 96374; 96375; 99291; C1894; J2597; P9045; P9047; Q9967